=== PATIENT | male | born 1935 | race Caucasian/White ===

== ENCOUNTER 2016-10-29 14:20 | Outpatient (RCR) | payer MEDICARE, OTHER ==
--- OUTSIDE RECORDS SUMMARY | 2016-08-26 13:01 | XMS REPORT | Continuity of Care Document ---
Author Author [facility] Organization [facility] Address Unknown Phone Unavailable Care Team Providers Care Supervisor Sewer Maintenance Name Role Phone Lenora Avalos PCP [phone] Source Comments Some departments are not documenting in the electronic medical record. If you do not see the information that you expected, contact Release of Information in the Health Information Management department at [phone] for further assistance in locating additional records.[facility] Active Allergies and Adverse Reactions Allergen Noted Date Severity Reactions Comments Sulfa (Sulfonamide 05/03/2015 Medium RASH Antibiotics) Current Medications Prescription Sig. Disp. Refills Start End Date Status Date other medication Take 1 Dose by mouth. Active [place] vitamins daily pantoprazole DR Take 40 mg by mouth Active (PROTONIX) 40 mg tablet daily. ondansetron (ZOFRAN) 4 mg Take 4 mg by mouth every Active tablet 4 hours as needed for Nausea. metolazone (ZAROXOLYN) Take 2.5 mg by mouth Active 2.5 mg tablet twice weekly. potassium chloride SR Take 10 mEq by mouth Active (K-DUR) 10 mEq tablet twice weekly. oxyCODONE (ROXICODONE) 5 Take 1-2 Tabs by mouth 30 Tab 0 05/22/20 Active mg tablet every 4 hours as needed 15 for Pain tamsulosin (FLOMAX) 0.4 Take 1 Cap by mouth daily 30 Cap 3 05/22/20 Active mg capsule after breakfast. 15 metoprolol (LOPRESSOR) 50 Take 1 Tab by mouth twice 60 Tab 3 05/22/20 Active mg tablet daily. 15 polyethylene glycol 3350 Take 17 g by mouth twice 3 Bottle 3 05/22/20 Active (GLYCOLAX; MIRALAX) 17 daily. 15 gram/dose powder senna/docusate Take 2 Tabs by mouth 05/22/20 Active (SENOKOT-S) 8.6/50 mg twice daily. 15 tablet aspirin 81 mg chewable Take 1 Tab by mouth 90 Tab 3 05/22/20 Active tablet daily. 15 Active Problems Problem Noted Date Leukocytosis 05/22/2015 S/P laparotomy 05/22/2015 Overview: 05/14/15: Pancreaticoduodenectomy, open cholecystectomy, reconstruction with pancreaticojejunostomy, hepaticojejunostomy, and gastrojejunostomy. S/P cholecystectomy 05/22/2015 Overview: 05/14/15 Atrial flutter (HCC) 05/21/2015 Overview: 05/19/15: Pt noted to have irregular rhythm. Cardiology consulted. AFlutter. Heparin gtt. Cardizem gtt. Plan for LAURA 05/21 and cardioversion if no clots. However pt spontaneously converted at 1900. 05/20/15: Change Dilt to PO 180mg XL. DC Heparin gtt. Plan for TTE tomorrow. 05/21/15: Change Dilt to Lopressor 25mg BID. Pt back in AF on ECHO. Treatment Lovenox. EP consult--plan to do ablation in future ECHO 05/21/15: Rhythm was atrial flutter at time of image acquisition. Hyperdynamic LV function. LVEF ~70%. Mild left atrial enlargement. No significant valvular abnormalities. Technically difficult study. Postoperative ileus 05/17/2015 Essential hypertension 05/15/2015 Overview: WIRE SAWYER: Cozaar 100mg Pancreatic mass 05/14/2015 Social History Tobacco Use Types Packs/Day Years Used Date Never Smoker Smokeless Tobacco: Never Used Alcohol Use Drinks/Week oz/Week Comments No Last Filed Vital Signs Vital Sign Reading Time Taken Blood Pressure 135/70 06/28/2015 11:03 AM CDT Pulse 48 06/28/2015 11:03 AM CDT Temperature 36.4 C (97.6 F) 06/28/2015 11:03 AM CDT Respiratory Rate 17 05/03/2015 11:00 AM CDT Height 1.727 m (5' 8") 06/28/2015 11:03 AM CDT Weight 77.248 kg (170 lb 4.8 oz) 06/28/2015 11:03 AM CDT Body Mass Index 25.9 06/28/2015 11:03 AM CDT Oxygen Saturation 100% 06/28/2015 11:03 AM CDT Plan of Care Health Maintenance Due Date Last Done Comments Physical (Comprehensive) 1942 Exam Pertussis Vaccine 1948 Tetanus Vaccine 1954 Shingles Vaccine 1997 Prevnar/Pneumovax (#1) 2002 Influenza Vaccine 05/22/2016 Results from Last 3 Months Not on file
[~2016-10-29 14:20] MED LIST: ASPI-983 PO; CEFD300C3 PO; FURO40TA4 PO; LEVO500T80 PO; LIPA1CAP4 PO; LISI1TAB10 PO; LOSA100T7 PO; METO-333 PO; METO2.5T PO; METO50TA2 PO; METR500T PO; MTL5T PO; MULT-116 PO; ONDA4TAB10 PO; OXYC5TAB71 PO; PANT40TA3 PO; POLY17PO6 PO; POTA10CA43 PO; POTA20TA8 PO; SENN-1 PO; TAMS0.4C2 PO
== END 2016-11-24 | disposition home or self-care (01) ==
LOC: ONC 14:20
PROVIDERS: ATTEND Internal Medicine Hematology & Oncology
DX: C25.0 Malignant neoplasm of head of pancreas (principal); D64.9 Anemia, unspecified; I10 Essential (primary) hypertension; K21.9 Gastro-esophageal reflux disease without esophagitis; Z79.899 Other long term (current) drug therapy
CPT/HCPCS: 99213

== ENCOUNTER 2017-02-17 09:22 | Outpatient (RCR) | payer MEDICARE, OTHER ==
--- OUTSIDE RECORDS SUMMARY | 2016-12-02 14:20 | XMS REPORT | Continuity of Care Document ---
Author Author [facility] Organization [facility] Address Unknown Phone Unavailable Care Team Providers Care Makeup Editor Name Role Phone Lenora Avalos PCP [phone] Source Comments Some departments are not documenting in the electronic medical record. If you do not see the information that you expected, contact Release of Information in the Health Information Management department at [phone] for further assistance in locating additional records.[facility] Active Allergies and Adverse Reactions Allergen Noted [...] Postoperative ileus 05/17/2015 Essential hypertension 05/15/2015 Overview: MEDICAL SALES SPECIALIST: Cozaar 100mg Pancreatic mass 05/14/2015 Social History [...]
[~2017-02-17 09:22] MED LIST changes: -BARIUM SUSPENSION 2.1% (VANILLA SILQ) 450 ML PO ONE; -CATHETER FLUSH 10 ML SYR IV PRN; -IOHEXOL 350 MG/ML 100 ML (OMNIPAQUE 350) VIAL IV ONE; -NS 100 ML (IVPB) BAG IV ONE
[2017-02-17 09:42] LABS: BASOPHILS % (AUTO) 0 % (0-10); EOSINOPHILS # (AUTO) 0.2 10^3/uL (0.0-0.3); EOSINOPHILS % (AUTO) 3 % (0-10); LYMPHOCYTES # (AUTO) 1.4 X 10^3 (1.0-4.0); LYMPHOCYTES % (AUTO) 20 % (12-44); MEAN CORPUSCULAR HEMOGLOBIN 29 PG (25-34); MEAN CORPUSCULAR HGB CONC 33 G/DL (32-36); MEAN CORPUSCULAR VOLUME 88 FL (80-99); MEAN PLATELET VOLUME 9.4 FL (7.4-10.4); MONOCYTES # (AUTO) 1.2 X 10^3 (0.0-1.0); MONOCYTES % (AUTO) 17 % (0-12); NEUTROPHILS # (AUTO) 4.1 X 10^3 (1.8-7.8); NEUTROPHILS % (AUTO) 60 % (42-75); PLATELET COUNT 242 10^3/uL (130-400); RED BLOOD COUNT 4.18 10^6/uL (4.35-5.85); RED CELL DISTRIBUTION WIDTH 13.2 % (10.0-14.5); WHITE BLOOD COUNT 6.9 10^3/uL (4.3-11.0)
[2017-02-17 10:25] LABS: ALANINE AMINOTRANSFERASE 22 U/L (0-55); ANION GAP 7 MMOL/L (5-14); ASPARTATE AMINO TRANSFERASE 24 U/L (5-34); BILIRUBIN,TOTAL 0.3 MG/DL (0.1-1.0); BLOOD UREA NITROGEN 21 MG/DL (7-18); BUN/CREATININE RATIO 19; CALCIUM 9.3 MG/DL (8.5-10.1); CARBON DIOXIDE 26 MMOL/L (21-32); CHLORIDE 106 MMOL/L (98-107); CREATININE SERUM 1.09 MG/DL (0.60-1.30); GFR ESTIMATED > 60; GLUCOSE 86 MG/DL (70-105); POTASSIUM 4.5 MMOL/L (3.6-5.0); SODIUM 139 MMOL/L (135-145); TOTAL PROTEIN 6.8 G/DL (6.4-8.2)
== END 2017-03-02 | disposition home or self-care (01) ==
LOC: ONC 09:22
PROVIDERS: ATTEND Internal Medicine Hematology & Oncology
DX: C25.0 Malignant neoplasm of head of pancreas (principal); D64.9 Anemia, unspecified; I10 Essential (primary) hypertension; K21.9 Gastro-esophageal reflux disease without esophagitis; Z79.899 Other long term (current) drug therapy
CPT/HCPCS: 36415; 80053; 85025; 99212; 99213

== ENCOUNTER → 2017-02-17 | Outpatient (CLI) | payer MEDICARE, OTHER ==
[~2017-02-17] MED LIST changes: +BARIUM SUSPENSION 2.1% (VANILLA SILQ) 450 ML PO ONE; +CATHETER FLUSH 10 ML SYR IV PRN; +IOHEXOL 350 MG/ML 100 ML (OMNIPAQUE 350) VIAL IV ONE; +NS 100 ML (IVPB) BAG IV ONE
--- NOTE | 2017-02-17 13:29 | Diagnostic Imaging Report ---
PROCEDURE: CT chest with contrast, CT abdomen and pelvis with and without contrast. TECHNIQUE: Pre and post intravenous contrast axial imaging of the abdomen and pelvis and post contrast axial imaging of the chest were performed. INDICATION: Pancreatic cancer. 100 mL of Omnipaque 350 is administered intravenously. FINDINGS: CT CHEST: There is no mediastinal mass. No mediastinal, hilar or axillary lymphadenopathy seen. The heart size is normal. No pericardial or pleural effusion. The thoracic aorta is normal in caliber. No aneurysm or dissection. The lungs demonstrate no significant consolidation or mass. There is an indeterminate 4 mm low density nodule seen along the left major fissure at the level of the hilum, axial image 27. No prior studies are available for comparison. No other nodules are identified. Minimal dependent atelectasis seen in the lungs. The osseous structures demonstrate right convexity scoliosis. Degenerative changes are also seen in the mid thoracic spine. No destructive mass. CT ABDOMEN AND PELVIS: There is a 1.1 cm indeterminate lesion in the inferior aspect of the right hepatic lobe. Prior exams such as 11/05/2015 demonstrate a tiny subtle hypodense area in this location. This may suggest benign etiology. It also appears to have an elongated craniocaudal dimension, and morphology in favor of benign etiology. The spleen is not enlarged. The adrenals appear unremarkable. The pancreas demonstrates post surgical changes and adjacent surgical clips without significant change. The kidneys have symmetric enhancement and contrast excretion. There is no hydronephrosis. The urinary bladder appears unremarkable. There is moderate amounts of fecal material seen in the colon. The appendix is normal. No bowel obstruction. The abdominal aorta is normal in caliber. No para-aortic significantly enlarged lymph node is seen. The urinary bladder appears unremarkable. No pelvic lymphadenopathy is seen. Degenerative changes in the upper and lower lumbar spine are seen. There are moderate degenerative changes in the hip joints seen bilaterally. IMPRESSION: CT CHEST: Nonspecific 4 mm low density nodule along the left major fissure at the level of the hilum is favored to be related to scarring. Followup exams recommended. CT ABDOMEN: 1. A 1.1 cm hypodense lesion in the inferior aspect of the right hepatic lobe with an elongated craniocaudal dimension slightly more prominent compared to prior exams, likely benign. 2. Postsurgical changes near the pancreatic head with no developing soft tissue mass or lymphadenopathy. Dictated by: Dictated on workstation # [id number]
== END ==
LOC: RAD 09:53
PROVIDERS: ATTEND Internal Medicine Hematology & Oncology
DX: C25.0 Malignant neoplasm of head of pancreas (principal)
CPT/HCPCS: 71260; 74178

== ENCOUNTER 2017-04-17 08:48 | Outpatient (RCR) | payer MEDICARE, OTHER ==
[~2017-04-17 08:48] MED LIST changes: -MULT-116 PO; +MULT-324 PO
== END 2017-06-20 | disposition home or self-care (01) ==
LOC: ONC 08:48
PROVIDERS: ATTEND Internal Medicine Hematology & Oncology
DX: C25.0 Malignant neoplasm of head of pancreas (principal); D64.9 Anemia, unspecified; I10 Essential (primary) hypertension; K21.9 Gastro-esophageal reflux disease without esophagitis; Z79.899 Other long term (current) drug therapy
CPT/HCPCS: 99213

== ENCOUNTER → 2017-09-16 | Outpatient (CLI) | payer MEDICARE, OTHER ==
[~2017-09-16] MED LIST changes: +BARIUM SUSPENSION 2.1% (VANILLA SILQ) 450 ML PO ONE; +IOHEXOL 350 MG/ML 100 ML (OMNIPAQUE 350) VIAL IV ONE; +METO50TA15 PO; -METO50TA2 PO; +NS 100 ML (IVPB) BAG IV ONE; +OXYC-529 PO; -OXYC5TAB71 PO
--- NOTE | 2017-09-16 11:39 | Diagnostic Imaging Report ---
PROCEDURE: CT chest, abdomen, and pelvis with contrast. TECHNIQUE: Multiple contiguous axial images were obtained through the chest, abdomen, and pelvis after the administration of intravenous contrast. INDICATION: Primary pancreatic neuroendocrine tumor. 100 mL of Omnipaque 350 is administered intravenously. COMPARISON: 02/17/2017. FINDINGS: CT CHEST: Nonspecific 4 mm nodule along the major fissure on the left side at the level of the hilum is again seen without change from 02/17/2017 exam. There is no significant consolidation, mass, or suspicious or enlarging nodule identified. There is no mediastinal mass. There is no significant lymphadenopathy in the mediastinum or [place]. No significant lymphadenopathy in the axillae. A thyroid nodule measuring 1.5 cm in the left lobe is seen. This appears slightly more prominent compared to the prior study possibly related to different enhancement phase with no definitive change in size. No pleural or pericardial effusion. The thoracic aorta demonstrates normal enhancement with ectasia, particularly along the distal ascending aorta and in the arch. The cardiac size is borderline enlarged. The osseous structures appear grossly unremarkable. CT ABDOMEN AND PELVIS: There are hypodense lesions in the liver up to 1.2 cm anteriorly in segment IV and 1.1 cm in the inferior aspect of the right hepatic lobe. These are similar to prior exams and also are too small to accurately characterize, and are likely benign such as cysts. There is no new mass. The spleen is not enlarged. The adrenal glands appear unremarkable. Postsurgical changes and clips are seen near the pancreatic head area probably related to prior Whipple's procedure with the distal aspect of the pancreas demonstrating minimally prominent pancreatic duct and atrophy of the pancreatic tail. There is no evidence of tumor recurrence. The kidneys have symmetric enhancement and contrast excretion. There is no hydronephrosis. Small cyst projecting anteriorly from the lower pole of the right kidney is seen measuring 1.3 cm, similar to the prior exam. The abdominal aorta is normal in caliber. No para-aortic significantly enlarged lymph node is seen. There is no significant free fluid or fluid collection in the abdomen or pelvis. The osseous structures demonstrate degenerative changes with no suspicious destructive mass identified. IMPRESSION: CT CHEST: Stable 4 mm nodule in the major fissure on the left side at the level of the hilum probably related to a scar. No evidence of metastasis. CT ABDOMEN AND PELVIS: Stable hypodense lesions in the liver up to 1.2 cm in size, may relate to cysts. Post-Whipple changes are also seen. No evidence of tumor recurrence or metastasis. Dictated by: Dictated on workstation # [id number]
== END ==
LOC: RAD 10:20
PROVIDERS: ATTEND Internal Medicine Hematology & Oncology
DX: D3A.8 Other benign neuroendocrine tumors (principal); R91.1 Solitary pulmonary nodule; K76.89 Other specified diseases of liver; Z98.890 Other specified postprocedural states
CPT/HCPCS: 71260; 74177

== ENCOUNTER → 2017-09-30 | Outpatient (RCR) | payer MEDICARE, OTHER ==
[~2017-09-30] MED LIST changes: -BARIUM SUSPENSION 2.1% (VANILLA SILQ) 450 ML PO ONE; -IOHEXOL 350 MG/ML 100 ML (OMNIPAQUE 350) VIAL IV ONE; -NS 100 ML (IVPB) BAG IV ONE
== END | disposition home or self-care (01) ==
LOC: ONC 07-02 13:22
PROVIDERS: ATTEND Internal Medicine Hematology & Oncology
DX: C25.0 Malignant neoplasm of head of pancreas (principal); D64.9 Anemia, unspecified; I10 Essential (primary) hypertension; K21.9 Gastro-esophageal reflux disease without esophagitis; Z79.899 Other long term (current) drug therapy
CPT/HCPCS: 99213

== ENCOUNTER 2018-03-25 13:15 | Outpatient (RCR) | payer MEDICARE, OTHER ==
[~2018-03-25 13:15] MED LIST changes: -SENN-1 PO; +SENN-145 PO
== END 2018-04-20 | disposition home or self-care (01) ==
LOC: ONC 13:15
PROVIDERS: ATTEND Internal Medicine Hematology & Oncology
DX: C25.0 Malignant neoplasm of head of pancreas (principal); D64.9 Anemia, unspecified; I10 Essential (primary) hypertension; K21.9 Gastro-esophageal reflux disease without esophagitis; Z79.899 Other long term (current) drug therapy
CPT/HCPCS: 99213

== ENCOUNTER 2018-05-21 14:29 | Emergency (ER) | payer MEDICARE, OTHER ==
[~2018-05-21] VITALS: Ht 175.3 cm; Wt 83.9 kg
--- NOTE | 2018-05-21 14:58 | ED Lower Extremity ---
General Stated Complaint: LT FOOT INJ Source: patient Exam Limitations: no limitations History of Present Illness Date Seen by Provider: May 21, 2018 Time Seen by Provider: 14:57 Initial Comments To Er with c/o left great toe pain after dropping a trailer tongue on it earlier this afternoon. Onset: just prior to arrival Pain/Injury Location: left 1st toe Method of Injury: direct blow Modifying Factors: Worse With Movement Allergies and Home Medications Allergies Coded Allergies: Tetanus Vaccines & Toxoid (Unverified Allergy, Unknown, 03/25/15) Home Medications Furosemide 40 Mg Tablet, 20 MG PO DAILY Prescribed by: ROSMERY AVALOS on 05/29/15 1738 Levofloxacin 500 Mg Tablet, 500 MG PO HS 10 DAY THERAPY FILLED 05-23-15 Prescribed by: ROSMERY AVALOS on 11/09/15 0904 Lipase/Protease/Amylase 1 Each Capsule.dr, 2 EACH PO AC and 1 with snacks Prescribed by: ROSMERY AVALOS on 11/09/15 09 Metoprolol Tartrate 25 Mg Tablet, 25 MG PO BID Prescribed by: ROSMERY AVALOS on 05/29/15 173 Metronidazole 500 Mg Tablet, 500 MG PO TID Prescribed by: ROSMERY AVALOS on 11/09/15 0904 Multivitamin 1 Each Tablet, 1 TAB PO DAILY, (Reported) Oxycodone HCl 5 Mg Tablet, 5 MG PO Q4H PRN for PAIN, (Reported) Pantoprazole Sodium 40 Mg Tablet.dr, 40 MG PO DAILY, (Reported) Polyethylene Glycol 3350 17 Gm Powd.pack, 17 GM PO BID PRN for CONSTIPATION, ( Reported) Potassium Chloride 20 Meq Tab.er.prt, 20 MEQ PO BID WITH MEALS Prescribed by: ROSMERY AVALOS on 05/29/15 1738 Sennosides/Docusate Sodium 1 Each Tablet, 1 TAB PO BID PRN for CONSTIPATION, ( Reported) Tamsulosin HCl 0.4 Mg Cap.er.24h, 0.4 MG PO DAILY, (Reported) Patient Home Medication List Home Medication List Reviewed: Yes Review of Systems Constitutional: see HPI EENTM: see HPI Respiratory: no symptoms reported Cardiovascular: no symptoms reported Genitourinary: see HPI Musculoskeletal: see HPI Skin: no symptoms reported Psychiatric/Neurological: No Symptoms Reported Past Dyhgxro-Arcegx-Ydagtj Hx Patient Social History Recent Foreign Travel: No Contact w/Someone Who Travel: No Immunizations Up To Date Tetanus Booster (TDap): More than 5yrs Date of Pneumonia Vaccine: Jun 05, 2015 Date of Influenza Vaccine: Jul 05, 2015 Seasonal Allergies Seasonal Allergies: No Past Medical History Hypertension Reproductive Disorders: No Cataract Pancreatic Adverse Reaction/Blood Tranf: No Family Medical History Cardiovascular disease 19 FATHER Dementia 19 MOTHER Diabetes mellitus 19 FATHER FH: leukemia G8 SISTER FH: multiple myeloma G8 BROTHER Physical Exam Vital Signs Vital Signs - First Documented 05/21/18 14:55 Temp 97.2 Pulse 61 Resp 18 B/P (MAP) 150/83 (105) Pulse Ox 99 Capillary Refill : Height, Weight, BMI Height: 5'8.00" Weight: 172lbs. 0.0oz. 78.559046mc; 29.49 BMI Method:Actual General Appearance: WD/WN, no apparent distress HEENT: PERRL/EOMI, normal ENT inspection Respiratory: no respiratory distress, no accessory muscle use Hips: bilateral hip non-tender, bilateral hip normal inspection, bilateral hip normal range of motion Legs: bilateral leg non-tender, bilateral leg normal inspection, bilateral leg normal range of motion Knees: bilateral knee non-tender, bilateral knee normal inspection, bilateral knee normal range of motion Ankles: bilateral ankle non-tender, bilateral ankle normal inspection, bilateral ankle normal range of motion Feet: left foot ecchymosis, left foot pain, left foot soft tissue tenderness, left foot other (over 1st MTP joint) Neurologic/Tendon: normal sensation, normal motor functions, normal tendon functions Neurologic/Psychiatric: alert, normal mood/affect, oriented x 3 Skin: normal color, warm/dry Capillary refill over left great toe is brisk, normal sensation Progress/Results/Core Measures Results/Orders My Orders Orders - JORGE RUFF APRN Foot, Left, 3 Views (05/21/18 14:56) Ibuprofen Tablet (Motrin Tablet) (05/21/18 15:00) Medications Given in ED Current Medications Medications Dose Ordered Sig/Prasad Route Start Time Stop Time Status Last Admin Dose Admin Ibuprofen 800 mg ONCE ONCE PO 05/21/18 15:00 05/21/18 15:01 DC 05/21/18 15:10 800 MG Vital Signs/I&O 05/21/18 14:55 Temp 97.2 Pulse 61 Resp 18 B/P (MAP) 150/83 (105) Pulse Ox 99 Diagnostic Imaging Diagonstic Imaging: Xray Comments NAME: SHAY KATZ [facility] REC#: [id number] PT STATUS: REG ER : 1935 PHYSICIAN: JORGE RUFF APRN ADMIT DATE: 05/21/18/ER Draft Date of Exam:05/21/18 FOOT, LEFT, 3 VIEWS INDICATION: Injury to left foot. EXAMINATION: AP, oblique, and lateral views of the left foot are obtained. FINDINGS: There is an acute fracture of the first proximal phalanx, without significant malalignment. Remaining bony structures are unremarkable. IMPRESSION: Acute fracture of first proximal phalanx without significant malalignment. Dictated on workstation # [id number] Dict: 05/21/18 1513 Trans: 05/21/18 1546 [facility] [phone] Interpreted by: MONET DIAZ MD Electronically signed by: Departure Impression Primary Impression: Fracture of toe Disposition: 01 HOME, SELF-CARE Condition: Stable Departure-Patient Inst. Decision time for Depature: 15:49 Referrals: ROSMERY AVALOS DO (PCP/Family) Primary Care Physician Patient Instructions: Toe Fracture (DC) Add. Discharge Instructions: 1. Keep the first 2 toes jose taped together. Wear very protective and supportive shoes for the next 2-3 weeks. Follow-up with Dr. Avalos to repeat x- rays in a few weeks. JORGE RUFF APRN May 21, 2018 14:58
[2018-05-21] MEDS: IBUPROFEN 800 MG (MOTRIN) TAB PO ONE (15:10)
--- NOTE | 2018-05-21 15:46 | Diagnostic Imaging Report ---
INDICATION: Injury to left foot. EXAMINATION: AP, oblique, and lateral views of the left foot are obtained. FINDINGS: There is an acute fracture of the first proximal phalanx, without significant malalignment. Remaining bony structures are unremarkable. IMPRESSION: Acute fracture of first proximal phalanx without significant malalignment. Dictated by: Dictated on workstation # [id number]
[2018-05-21 15:55] VITALS: BP 150/83
--- OUTSIDE RECORDS SUMMARY | 2018-05-22 03:41 | XMS REPORT | Clinical Summary ---
Author Author [facility] Organization [facility] Address Unknown Phone Unavailable Care Team Providers Care Urban And Regional Planner Name Role Phone Lyndsay Fishman RN Unavailable Unavailable Emmanuel Vences DO Unavailable Lenora Avalos MD PCP Josey Marino RN Unavailable Unavailable Perry Willis MD Unavailable Source Comments Some departments are not documenting in the electronic medical record. If you do not see the information that you expected, contact Release of Information in the Health Information Management department at [phone] for further assistance in locating additional records.[facility] Allergies Active Allergy Reactions Severity Noted Date Comments Sulfa (Sulfonamide RASH Medium 05/03/2015 Antibiotics) Current Medications Prescription Sig. Disp. Refills [...] valvular abnormalities. Technically difficult study. Postoperative ileus (HCC) 05/17/2015 Essential hypertension 05/15/2015 Overview: HEALTH UNDERWRITER: Cozaar 100mg Pancreatic mass 05/14/2015 Social History Tobacco Use Types Packs/Day Years Used Date Never Smoker Smokeless Tobacco: Never Used Alcohol Use Drinks/Week oz/Week Comments No Sex Assigned at Date Recorded Not on file Last Filed Vital Signs Vital Sign Reading Time Taken Blood Pressure 135/70 06/28/2015 11:03 AM CDT Pulse 48 06/28/2015 11:03 AM CDT Temperature 36.4 C (97.6 F) 06/28/2015 11:03 AM CDT Respiratory Rate 17 05/03/2015 11:00 AM CDT Oxygen Saturation 100% 06/28/2015 11:03 AM CDT Inhaled Oxygen - - Concentration Weight 77.2 kg (170 lb 4.8 oz) 06/28/2015 11:03 AM CDT Height 172.7 cm (5' 8") 06/28/2015 11:03 AM CDT Body Mass Index 25.89 06/28/2015 11:03 AM CDT Plan of Treatment Health Maintenance Due Date Last Done Comments PHYSICAL (COMPREHENSIVE) 1942 EXAM PERTUSSIS VACCINE 1948 TETANUS VACCINE 1954 SHINGLES RECOMBINANT 1987 VACCINE (1 of 2) PNEUMONIA (PCV13/PPSV23) 2002 VACCINES (1 of 2 - PCV13) INFLUENZA VACCINE 06/21/2018 Results Not on filefrom Last 3 Months
--- OUTSIDE RECORDS SUMMARY | 2018-05-22 03:42 | XMS REPORT | Continuity of Care Document ---
Author Author [facility] Organization [facility] Address Unknown Phone Unavailable Allergies Active Description Code Type Severity Reaction Onset Reported/Identified Relationship to Patient Clinical Status Yes Tetanus Vaccines Toxoid [id number] Drug Allergy Unknown N/A 03/25/2015 Yes Tetanus Vaccines and Toxoid [id number] Drug Allergy Unknown N/A 2014 Medications There is no data. Problems Date Dx Coded Attending Type Code Diagnosis Diagnosed By 02/21/2011 Ot 883.1 02/21/2011 Ot 959.5 02/21/2011 Ot E000.8 02/21/2011 Ot E849.0 02/21/2011 Ot E920.1 03/25/2015 JORGE RUFF HABILITATION WORKER Ot 562.10 DIVERTICULOSIS COLON (W/O MENT OF HEMORR 03/25/2015 JORGE RUFF HABILITATION WORKER Ot 783.0 ANOREXIA 03/25/2015 JORGE RUFF HABILITATION WORKER Ot 789.09 ABDOMINAL PAIN, OTHER SPECIFIED SITE 03/25/2015 Ot 253.1 03/28/2015 Ot 253.1 04/13/2015 JUDAH AVALOS DOQUELINE S Ot 157.9 04/19/2015 Ot 253.1 04/19/2015 LOIDANDER DO, ROSMERY S Ot 577.9 04/19/2015 LOIDANDER DO, ROSMERY S Ot 789.01 04/19/2015 LOIDANDER DO, ROSMERY S Ot 157.9 04/25/2015 LOIDANDER DO, ROSMERY S Ot 577.9 04/25/2015 LOIDANDER DO, ROSMERY S Ot 789.01 05/03/2015 LOIDANDPAGE PICKETT ROSMERY S Ot 157.9 05/15/2015 DUNCAN MOTTA, SHANNAN Ross Ot 157.0 05/15/2015 DUNCAN MOTTA, SHANNAN Ross Ot 285.9 05/15/2015 DUNCAN MOTTA, SHANNAN Ross Ot 401.9 05/15/2015 DUNCAN MOTTA, SHANNAN Ross Ot 530.81 05/15/2015 DUNCAN MOTTA, SHANNAN Ross Ot V58.69 05/29/2015 LOIDANDER DO, ROSMERY S Ot 038.9 SEPTICEMIA NOS 05/29/2015 LOIDANDER DO, ROSMERY S Ot 157.9 MALIG ISAIAS PANCREAS NOS 05/29/2015 LOIDANDER DO, ROSMERY S Ot 276.8 HYPOPOTASSEMIA 05/29/2015 LOIDANDER DO, ROSMERY S Ot 285.9 ANEMIA NOS 05/29/2015 LOIDANDER DO, ROSMERY S Ot 401.9 HYPERTENSION NOS 05/29/2015 LOIDANDER DO, ROSMERY S Ot 486 PNEUMONIA, ORGANISM NOS 05/29/2015 LOIDANDER DO, ROSMERY S Ot 564.00 UNSPEC CONSTIPATION 05/29/2015 LOIDANDER DO, ROSMERY S Ot 780.79 OTH MALAISE FATIGUE 05/29/2015 LOIDANDER DO, ROSMERY S Ot 995.91 SEPSIS 05/29/2015 LOIDANDER DO, ROSMERY S Ot 997.39 OTHER RESPIRATORY COMPLICATIONS 05/29/2015 LOIDANDPAGE DO ROSMERY S Ot 998.59 OTH POSTOPER INFECTION 06/13/2015 LOIDANDPAGE DO, ROSMERY S Ot 288.60 06/13/2015 LOIDANDER DO, ROSMERY S Ot 780.60 06/18/2015 Ot 253.1 06/18/2015 LOIDANDPAGE DO, ROSMERY S Ot 577.9 06/18/2015 LOIDANDER DO, ROSMERY S Ot 789.01 06/18/2015 LOIDANDPAGE DO ROSMERY S Ot 157.9 06/18/2015 DUNCAN MOTTA, SHANNAN Ross Ot 157.0 06/18/2015 DUNCAN MOTTA, SHANNAN Ross Ot 285.9 06/18/2015 DUNCAN MOTTA, SHANNAN Ross Ot 401.9 06/18/2015 DUNCAN MOTTA, SHANNAN Ross Ot 530.81 06/18/2015 DUNCAN MOTTA, SHANNAN Ross Ot V58.69 06/18/2015 LOIDANDER DO, ROSMERY S Ot 288.60 06/18/2015 LOIDANDER DO, ROSMERY S Ot 780.60 06/18/2015 LOIDANDPAGE DO, ROSMERY S Ot 486 06/18/2015 ANABELLE MOTTA [facility], PAOLO GOLDEN CCDS Ot 157.9 06/18/2015 ANABELLE MOTTA FACC, ALI FACP CCDS Ot 285.9 06/18/2015 ANABELLE MOTTA FACC, ALI FACP CCDS Ot 427.31 06/18/2015 ANABELLE MOTTA FACC, ALI FACP CCDS Ot 458.9 06/20/2015 DUNCAN MOTTA, SHANNAN Ross Ot 157.0 MAL ISAIAS PANCREAS HEAD 06/20/2015 SHANNAN SONG MD Ot 285.9 ANEMIA NOS 06/20/2015 SHANNAN SONG MD Ot 401.9 HYPERTENSION NOS 06/20/2015 SHANNAN SONG MD Ot 530.81 ESOPHAGEAL REFLUX 06/20/2015 SHANNAN SONG MD Ot V58.69 [facility],CURRENT USE 06/27/2015 ROSMERY AVALOS DO Ot 486 2015 ANABELLE MOTTA FACC, ALI FACP CCDS Ot 157.9 2015 ANABELLE MOTTA FACC, ALI FACP CCDS Ot 285.9 2015 ANABELLE MOTTA FACC, ALI FACP CCDS Ot 427.31 2015 ANABELLE MOTTA FACC, ALI FACP CCDS Ot 458.9 07/12/2015 ANABELLE MOTTA FACC, ALI FACP CCDS Ot 157.9 07/12/2015 ANABELLE MOTTA FACC, ALI FACP CCDS Ot 285.9 07/12/2015 ANABELLE MOTTA FACC, ALI FACP CCDS Ot 427.31 07/12/2015 ANABELLE MOTTA FACC, ALI FACP CCDS Ot 458.9 09/12/2015 DUNCAN MOTTA, SHANNAN Ross Ot 157.0 09/12/2015 DUNCAN MOTTA, SHANNAN Ross Ot 285.9 09/12/2015 DUNCAN MOTTA, SHANNAN Ross Ot 401.9 09/12/2015 DUNCAN MOTTA, SHANNAN Ross Ot 530.81 09/12/2015 SHANNAN SONG MD Ot V58.69 09/19/2015 DUNCAN MOTTA, SHANNAN Ross Ot 157.0 09/19/2015 DUNCAN MOTTA, SHANNAN Ross Ot 285.9 09/19/2015 DUNCAN MOTTA, SHANNAN Ross Ot 401.9 09/19/2015 DUNCAN MOTTA, SHANNAN Ross Ot 530.81 09/19/2015 SHANNAN SONG MD Ot V58.69 11/05/2015 Ot 253.1 11/05/2015 ROSMERY AVALOS DO S Ot 577.9 11/05/2015 ROSMERY AVALOS DO S Ot 789.01 11/05/2015 ORENDER DO, ROSMERY S Ot 157.9 11/05/2015 ORENDER DO, ROSMERY S Ot 288.60 11/05/2015 ORENDER DO, ROSMERY S Ot 780.60 11/05/2015 ORENDER DO, ROSMERY S Ot 486 11/05/2015 ANABELLE MOTTA FACC, ALI FACP CCDS Ot 157.9 11/05/2015 ANABELLE MOTTA FAC, ALI FACP CCDS Ot 285.9 11/05/2015 ANABELLE MD FAC, ALI FACP CCDS Ot 427.31 11/05/2015 ANABELLE MOTTA FAC, ALI FACP CCDS Ot 458.9 11/05/2015 ANABELLE MOTTA FAC, ALI FACP CCDS Ot 157.9 11/05/2015 ANABELLE MOTTA FAC, ALI FACP CCDS Ot 285.9 11/05/2015 ANABELLE MOTTA FAC, ALI FACP CCDS Ot 427.31 11/05/2015 ANABELLE MOTTA FAC, ALI FACP CCDS Ot 458.9 11/05/2015 DUNCAN MOTTA, SHANNAN Cody Ot C25.0 11/05/2015 DUNCAN MOTTA, SHANNAN K Ot D64.9 11/05/2015 DUNCAN MOTTA, SHANNAN K Ot I10 11/05/2015 DUNCAN MOTTA, SHANNAN K Ot K21.9 11/05/2015 DUNCAN MOTTA, SHANNAN Ross Ot Z79.899 11/07/2015 ORENDER DO, ROSMERY S Ot I10 11/07/2015 ORENDER DO, ROSMERY S Ot N28.1 11/07/2015 ORENDER DO, ROSMERY S Ot R58 11/07/2015 ORENDER DO, ROSMERY S Ot Z85.07 11/08/2015 ORENDER DO, ROSMERY S Ot I10 11/08/2015 ORENDER DO, ROSMERY S Ot N28.1 11/08/2015 ORENDER DO, ROSMERY S Ot R58 11/08/2015 ORENDER DO, ROSMERY S Ot Z85.07 11/08/2015 ORENDER DO, ROSMERY S Ot I10 11/08/2015 ORENDER DO, ROSMERY S Ot N28.1 11/08/2015 ORENDER DO, ROSMERY S Ot R58 11/08/2015 [facility] ROMSERY S Ot Z85.07 11/09/2015 [facility], ROSMERY S Ot I10 11/09/2015 ORENDER DO, ROSMERY S Ot N28.1 11/09/2015 ORENDER DO, ROSMERY S Ot R58 11/09/2015 ORENDER DO, ROSMERY S Ot Z85.07 11/09/2015 OREND DO, ROSMERY S Ot D62 ACUTE POSTHEMORRHAGIC ANEMIA 11/09/2015 ORENDER DO, ROSMERY S Ot I10 ESSENTIAL (PRIMARY) HYPERTENSION 11/09/2015 ORENDER DO, ROSMERY S Ot I48.91 UNSPECIFIED ATRIAL FIBRILLATION 11/09/2015 [facility], ROSMERY S Ot N28.1 CYST OF KIDNEY, ACQUIRED 11/09/2015 OREND DO, ROSMERY S Ot R58 HEMORRHAGE, NOT ELSEWHERE CLASSIFIED 11/09/2015 [facility] , ROSMERY S Ot Z85.07 PERSONAL HISTORY OF MALIGNANT NEOPLASM O 12/03/2015 JAYA VAUGHAN Ot R10.12 12/17/2015 SHANNAN SONG MD Ot C25.0 MALIGNANT NEOPLASM OF HEAD OF PANCREAS 12/17/2015 SHANNAN SONG MD Ot D64.9 ANEMIA, UNSPECIFIED 12/17/2015 SHANNAN SONG MD Ot I10 ESSENTIAL (PRIMARY) HYPERTENSION 12/17/2015 SHANNAN SONG MD Ot K21.9 GASTRO-ESOPHAGEAL REFLUX DISEASE WITHOUT 12/17/2015 SHANNAN SONG MD Ot Z79.899 OTHER CORRECTION (CURRENT) DRUG THERAPY 01/16/2016 SHANNAN SONG MD Ot C25.0 MALIGNANT NEOPLASM OF HEAD OF PANCREAS 01/16/2016 SHANNAN SONG MD Ot D64.9 ANEMIA, UNSPECIFIED 01/16/2016 SHANNAN SONG MD Ot I10 ESSENTIAL (PRIMARY) HYPERTENSION 01/16/2016 SHANNAN SONG MD Ot K21.9 GASTRO-ESOPHAGEAL REFLUX DISEASE WITHOUT 01/16/2016 SHANNAN SONG MD Ot Z79.899 OTHER COVER ASSEMBLER (CURRENT) DRUG THERAPY 02/06/2016 SHANNAN SONG MD Ot D3A.8 OTHER BENIGN NEUROENDOCRINE TUMORS 02/11/2016 SHANNAN SONG MD Ot C25.0 MALIGNANT NEOPLASM OF HEAD OF PANCREAS 02/11/2016 SHANNAN SONG MD Ot D64.9 ANEMIA, UNSPECIFIED 02/11/2016 SHANNAN SONG MD Ot I10 ESSENTIAL (PRIMARY) HYPERTENSION 02/11/2016 SHANNAN SONG MD Ot K21.9 GASTRO-ESOPHAGEAL REFLUX DISEASE WITHOUT 02/11/2016 SHANNAN SONG MD Ot Z79.899 OTHER COVER ASSEMBLER (CURRENT) DRUG THERAPY 04/10/2016 SHANNAN SONG MD Ot C25.0 MALIGNANT NEOPLASM OF HEAD OF PANCREAS 04/10/2016 SHANNAN SONG MD Ot D64.9 ANEMIA, UNSPECIFIED 04/10/2016 SHANNAN SONG MD Ot I10 ESSENTIAL (PRIMARY) HYPERTENSION 04/10/2016 SHANNAN SONG MD Ot K21.9 GASTRO-ESOPHAGEAL REFLUX DISEASE WITHOUT 04/10/2016 SHANNAN SONG MD Ot Z79.899 OTHER COVER ASSEMBLER (CURRENT) DRUG THERAPY 04/11/2016 SHANNAN SONG MD, Ot C25.0 MALIGNANT NEOPLASM OF HEAD OF PANCREAS 04/11/2016 SHANNAN SONG MD, Ot D64.9 ANEMIA, UNSPECIFIED 04/11/2016 SHANNAN SONG MD Ot I10 ESSENTIAL (PRIMARY) HYPERTENSION 04/11/2016 SHANNAN SONG MD, Ot K21.9 GASTRO-ESOPHAGEAL REFLUX DISEASE WITHOUT 04/11/2016 SHANNAN SONG MD Ot Z79.899 OTHER COVER ASSEMBLER (CURRENT) DRUG THERAPY 05/20/2016 SHANNAN SONG MD, Ot C25.0 MALIGNANT NEOPLASM OF HEAD OF PANCREAS 05/20/2016 SHANNAN SONG MD, Ot D64.9 ANEMIA, UNSPECIFIED 05/20/2016 SHANNAN SONG MD Ot I10 ESSENTIAL (PRIMARY) HYPERTENSION 05/20/2016 SHANNAN SONG MD Ot K21.9 GASTRO-ESOPHAGEAL REFLUX DISEASE WITHOUT 05/20/2016 SHANNAN SONG MD Ot Z79.899 OTHER COVER ASSEMBLER (CURRENT) DRUG THERAPY 07/14/2016 SHANNAN SONG MD Ot C25.0 MALIGNANT NEOPLASM OF HEAD OF PANCREAS 07/14/2016 SHANNAN SONG MD, Ot D64.9 ANEMIA, UNSPECIFIED 07/14/2016 SHANNAN SONG MD Ot I10 ESSENTIAL (PRIMARY) HYPERTENSION 07/14/2016 SHANNAN SONG MD Ot K21.9 GASTRO-ESOPHAGEAL REFLUX DISEASE WITHOUT 07/14/2016 SHANNAN SONG MD Ot Z79.899 OTHER COVER ASSEMBLER (CURRENT) DRUG THERAPY 08/17/2016 DUNCAN MD, SHANNAN K Ot C25.0 MALIGNANT NEOPLASM OF HEAD OF PANCREAS 08/17/2016 SHANNAN SONG MD Ot D64.9 ANEMIA, UNSPECIFIED 08/17/2016 SHANNAN SONG MD Ot I10 ESSENTIAL (PRIMARY) HYPERTENSION 08/17/2016 SHANNAN SONG MD Ot K21.9 GASTRO-ESOPHAGEAL REFLUX DISEASE WITHOUT 08/17/2016 SHANNAN SONG MD Ot Z79.899 OTHER CORRECTION (CURRENT) DRUG THERAPY 08/20/2016 Ot 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 08/20/2016 ORENDER DO, ROSMERY S Ot 577.9 PANCREATIC DISEASE NOS 08/20/2016 ORENDER DO, ROSMERY S Ot 789.01 ABDOMINAL PAIN, RIGHT UPPER QUADRANT 08/20/2016 ORENDER DO, ROSMERY S Ot 157.9 MALIG ISAIAS PANCREAS NOS 08/20/2016 ORENDER DO, ROSMERY S Ot 288.60 LEUKOCYTOSIS, UNSPECIFIED 08/20/2016 ORENDER DO, ROSMERY S Ot 780.60 FEVER, UNSPECIFIED 08/20/2016 ORENDER DO, ROSMERY S Ot 486 PNEUMONIA, ORGANISM NOS 08/20/2016 ANABELLE MOTTA FACC, ALI FACP CCDS Ot 157.9 MALIG ISAIAS PANCREAS NOS 08/20/2016 ANABELLE MOTTA FACC, ALI FACP CCDS Ot 285.9 ANEMIA NOS 08/20/2016 ANABELLE MOTTA FACC, ALI FACP CCDS Ot 427.31 ATRIAL FIBRILLATION 08/20/2016 ANABELLE MOTTA FACC, ALI FACP CCDS Ot 458.9 HYPOTENSION NOS 08/20/2016 ANABELLE MOTTA FACC, ALI FACP CCDS Ot 157.9 MALIG ISAIAS PANCREAS NOS 08/20/2016 ANABELLE MOTTA FACC, ALI FACP CCDS Ot 285.9 ANEMIA NOS 08/20/2016 ANABELLE MOTTA FACC, ALI FACP CCDS Ot 427.31 ATRIAL FIBRILLATION 08/20/2016 ANABELLE MOTTA FACC, ALI FACP CCDS Ot 458.9 HYPOTENSION NOS 08/20/2016 SHANNAN SONG MD Ot D3A.8 OTHER BENIGN NEUROENDOCRINE TUMORS 08/20/2016 JAYA VAUGHAN DIRECTOR OF RETAIL ANALYTICS Ot R10.12 LEFT UPPER QUADRANT PAIN 08/20/2016 SHANNAN SONG MD Ot C25.0 MALIGNANT NEOPLASM OF HEAD OF PANCREAS 08/20/2016 SHANNAN SONG MD Ot D64.9 ANEMIA, UNSPECIFIED 08/20/2016 SHANNAN SONG MD Ot I10 ESSENTIAL (PRIMARY) HYPERTENSION 08/20/2016 SHANNAN SONG MD Ot K21.9 GASTRO-ESOPHAGEAL REFLUX DISEASE WITHOUT 08/20/2016 SHANNAN SONG MD Ot Z79.899 OTHER COVER ASSEMBLER (CURRENT) DRUG THERAPY 08/21/2016 SHANNAN SONG MD Ot C25.0 MALIGNANT NEOPLASM OF HEAD OF PANCREAS 08/27/2016 SHANNAN SONG MD Ot C25.0 MALIGNANT NEOPLASM OF HEAD OF PANCREAS 08/27/2016 SHANNAN SONG MD Ot D64.9 ANEMIA, UNSPECIFIED 08/27/2016 SHANNAN SONG MD Ot I10 ESSENTIAL (PRIMARY) HYPERTENSION 08/27/2016 SHANNAN SONG MD Ot K21.9 GASTRO-ESOPHAGEAL REFLUX DISEASE WITHOUT 08/27/2016 SHANNAN SONG MD Ot Z79.899 OTHER CORRECTION (CURRENT) DRUG THERAPY 09/10/2016 SHANNAN SONG MD Ot C25.0 MALIGNANT NEOPLASM OF HEAD OF PANCREAS 10/22/2016 SHANNAN SONG MD Ot C25.0 MALIGNANT NEOPLASM OF HEAD OF PANCREAS 10/22/2016 SHANNAN SONG MD Ot D64.9 ANEMIA, UNSPECIFIED 10/22/2016 SHANNAN SONG MD Ot I10 ESSENTIAL (PRIMARY) HYPERTENSION 10/22/2016 SHANNAN SONG MD Ot K21.9 GASTRO-ESOPHAGEAL REFLUX DISEASE WITHOUT 10/22/2016 SHANNAN SONG MD Ot Z79.899 OTHER COVER ASSEMBLER (CURRENT) DRUG THERAPY 11/24/2016 SHANNAN SONG MD Ot C25.0 MALIGNANT NEOPLASM OF HEAD OF PANCREAS 11/24/2016 SHANNAN SONG MD Ot D64.9 ANEMIA, UNSPECIFIED 11/24/2016 SHANNAN SONG MD Ot I10 ESSENTIAL (PRIMARY) HYPERTENSION 11/24/2016 SHANNAN SONG MD Ot K21.9 GASTRO-ESOPHAGEAL REFLUX DISEASE WITHOUT 11/24/2016 SHANNAN SONG MD Ot Z79.899 OTHER CORRECTION (CURRENT) DRUG THERAPY 12/01/2016 SHANNAN SONG MD Ot C25.0 MALIGNANT NEOPLASM OF HEAD OF PANCREAS 12/01/2016 SHANNAN SONG MD Ot D64.9 ANEMIA, UNSPECIFIED 12/01/2016 SHANNAN SONG MD Ot I10 ESSENTIAL (PRIMARY) HYPERTENSION 12/01/2016 SHANNAN SONG MD Ot K21.9 GASTRO-ESOPHAGEAL REFLUX DISEASE WITHOUT 12/01/2016 SHANNAN SONG MD Ot Z79.899 OTHER CORRECTION (CURRENT) DRUG THERAPY 12/01/2016 SHANNAN SONG MD Ot C25.0 MALIGNANT NEOPLASM OF HEAD OF PANCREAS 12/01/2016 SHANNAN SONG MD Ot D64.9 ANEMIA, UNSPECIFIED 12/01/2016 SHANNAN SONG MD Ot I10 ESSENTIAL (PRIMARY) HYPERTENSION 12/01/2016 SHANNAN SONG MD Ot K21.9 GASTRO-ESOPHAGEAL REFLUX DISEASE WITHOUT 12/01/2016 SHANNAN SONG MD Ot Z79.899 OTHER COVER ASSEMBLER (CURRENT) DRUG THERAPY 12/03/2016 SHANNAN SONG MD Ot C25.0 MALIGNANT NEOPLASM OF HEAD OF PANCREAS 12/03/2016 SHANNAN SONG MD Ot D64.9 ANEMIA, UNSPECIFIED 12/03/2016 SHANNAN SONG MD Ot I10 ESSENTIAL (PRIMARY) HYPERTENSION 12/03/2016 SHANNAN SONG MD, Ot K21.9 GASTRO-ESOPHAGEAL REFLUX DISEASE WITHOUT 12/03/2016 SHANNAN SONG MD Ot Z79.899 OTHER COVER ASSEMBLER (CURRENT) DRUG THERAPY 01/13/2017 SHANNAN SONG MD Ot C25.0 MALIGNANT NEOPLASM OF HEAD OF PANCREAS 01/13/2017 SHANNAN SONG MD Ot D64.9 ANEMIA, UNSPECIFIED 01/13/2017 SHANNAN SONG MD Ot I10 ESSENTIAL (PRIMARY) HYPERTENSION 01/13/2017 SHANNAN SONG MD, Ot K21.9 GASTRO-ESOPHAGEAL REFLUX DISEASE WITHOUT 01/13/2017 SHANNAN SONG MD Ot Z79.899 OTHER COVER ASSEMBLER (CURRENT) DRUG THERAPY 02/18/2017 SHANNAN SONG MD Ot C25.0 MALIGNANT NEOPLASM OF HEAD OF PANCREAS 02/20/2017 SHANNAN SONG MD Ot C25.0 MALIGNANT NEOPLASM OF HEAD OF PANCREAS 02/20/2017 SHANNAN SONG MD Ot C25.0 MALIGNANT NEOPLASM OF HEAD OF PANCREAS 02/23/2017 SHANNAN SONG MD Ot C25.0 MALIGNANT NEOPLASM OF HEAD OF PANCREAS 03/02/2017 SHANNAN SONG MD Ot C25.0 MALIGNANT NEOPLASM OF HEAD OF PANCREAS 03/02/2017 SHANNAN SONG MD Ot D64.9 ANEMIA, UNSPECIFIED 03/02/2017 SHANNAN SONG MD Ot I10 ESSENTIAL (PRIMARY) HYPERTENSION 03/02/2017 SHANNAN SONG MD Ot K21.9 GASTRO-ESOPHAGEAL REFLUX DISEASE WITHOUT 03/02/2017 SHANNAN SONG MD Ot Z79.899 OTHER CORRECTION (CURRENT) DRUG THERAPY 03/03/2017 SHANNAN SONG MD Ot C25.0 MALIGNANT NEOPLASM OF HEAD OF PANCREAS 03/03/2017 SHANNAN SONG MD Ot D64.9 ANEMIA, UNSPECIFIED 03/03/2017 SHANNAN SONG MD Ot I10 ESSENTIAL (PRIMARY) HYPERTENSION 03/03/2017 SHANNAN SONG MD Ot K21.9 GASTRO-ESOPHAGEAL REFLUX DISEASE WITHOUT 03/03/2017 SHANNAN SONG MD Ot Z79.899 OTHER CORRECTION (CURRENT) DRUG THERAPY 03/20/2017 SHANNAN SONG MD Ot C25.0 MALIGNANT NEOPLASM OF HEAD OF PANCREAS 04/20/2017 SHANNAN SONG MD Ot C25.0 MALIGNANT NEOPLASM OF HEAD OF PANCREAS 04/20/2017 SHANNAN SONG MD Ot D64.9 ANEMIA, UNSPECIFIED 04/20/2017 SHANNAN SONG MD Ot I10 ESSENTIAL (PRIMARY) HYPERTENSION 04/20/2017 SHANNAN SONG MD, Ot K21.9 GASTRO-ESOPHAGEAL REFLUX DISEASE WITHOUT 04/20/2017 SHANNAN SONG MD Ot Z79.899 OTHER CORRECTION (CURRENT) DRUG THERAPY 05/18/2017 SHANNAN SONG MD Ot C25.0 MALIGNANT NEOPLASM OF HEAD OF PANCREAS 05/18/2017 SHANNAN SONG MD, Ot D64.9 ANEMIA, UNSPECIFIED 05/18/2017 SHANNAN SONG MD Ot I10 ESSENTIAL (PRIMARY) HYPERTENSION 05/18/2017 SHANNAN SONG MD, Ot K21.9 GASTRO-ESOPHAGEAL REFLUX DISEASE WITHOUT 05/18/2017 SHANNAN SONG MD Ot Z79.899 OTHER CORRECTION (CURRENT) DRUG THERAPY 06/20/2017 SHANNAN SONG MD Ot C25.0 MALIGNANT NEOPLASM OF HEAD OF PANCREAS 06/20/2017 SHANNAN SONG MD Ot D64.9 ANEMIA, UNSPECIFIED 06/20/2017 SHANNAN SONG MD Ot I10 ESSENTIAL (PRIMARY) HYPERTENSION 06/20/2017 SHANNAN SONG MD Ot K21.9 GASTRO-ESOPHAGEAL REFLUX DISEASE WITHOUT 06/20/2017 SHANNAN SONG MD Ot Z79.899 OTHER COVER ASSEMBLER (CURRENT) DRUG THERAPY 08/14/2017 JOSE MASON MD Ot C25.0 MALIGNANT NEOPLASM OF HEAD OF PANCREAS 08/14/2017 JOSE MASON MD, Ot D64.9 ANEMIA, UNSPECIFIED 08/14/2017 JOSE MASON MD Ot I10 ESSENTIAL (PRIMARY) HYPERTENSION 08/14/2017 JOSE MASON MD, Ot K21.9 GASTRO-ESOPHAGEAL REFLUX DISEASE WITHOUT 08/14/2017 JOSE MASON MD Ot Z79.899 OTHER COVER ASSEMBLER (CURRENT) DRUG THERAPY 09/30/2017 JOSE MASON MD Ot C25.0 MALIGNANT NEOPLASM OF HEAD OF PANCREAS 09/30/2017 JOSE MASON MD Ot D64.9 ANEMIA, UNSPECIFIED 09/30/2017 JOSE MASON MD Ot I10 ESSENTIAL (PRIMARY) HYPERTENSION 09/30/2017 JOSE MASON MD Ot K21.9 GASTRO-ESOPHAGEAL REFLUX DISEASE WITHOUT 09/30/2017 JOSE MASON MD, Ot Z79.899 OTHER COVER ASSEMBLER (CURRENT) DRUG THERAPY 10/01/2017 JOSE MASON MD Ot C25.0 MALIGNANT NEOPLASM OF HEAD OF PANCREAS 10/01/2017 JOSE MASON MD Ot D64.9 ANEMIA, UNSPECIFIED 10/01/2017 JOSE MASON MD Ot I10 ESSENTIAL (PRIMARY) HYPERTENSION 10/01/2017 JOSE MASON MD, Ot K21.9 GASTRO-ESOPHAGEAL REFLUX DISEASE WITHOUT 10/01/2017 JOSE MASON MD, Ot Z79.899 OTHER CORRECTION (CURRENT) DRUG THERAPY 10/08/2017 JOSE MASON MD Ot D3A.8 OTHER BENIGN NEUROENDOCRINE TUMORS 10/08/2017 JOSE MASON MD Ot K76.89 OTHER SPECIFIED DISEASES OF LIVER 10/08/2017 JOSE MASON MD Ot R91.1 SOLITARY PULMONARY NODULE 10/08/2017 JOSE MASON MD Ot Z98.890 OTHER SPECIFIED POSTPROCEDURAL STATES 03/25/2018 ORENDER DO, ROSMERY S Ot 577.9 PANCREATIC DISEASE NOS 03/25/2018 ORENDER DO, ROSMERY S Ot 789.01 ABDOMINAL PAIN, RIGHT UPPER QUADRANT 03/25/2018 LOIDANDER DO, ROSMERY S Ot 157.9 MALIG ISAIAS PANCREAS NOS 03/25/2018 ORENDER DO, ROSMERY S Ot 288.60 LEUKOCYTOSIS, UNSPECIFIED 03/25/2018 ORENDER DO, ROSMERY S Ot 780.60 FEVER, UNSPECIFIED 03/25/2018 ROSMERY AVALOS DO Ot 486 PNEUMONIA, ORGANISM NOS 03/25/2018 ANABELLE MOTTA FACC, ALI FACP CCDS Ot 157.9 MALIG ISAIAS PANCREAS NOS 03/25/2018 ANABELLE MD FACC, ALI FACP CCDS Ot 285.9 ANEMIA NOS 03/25/2018 ANABELLE FACC, ALI FACP CCDS Ot 427.31 ATRIAL FIBRILLATION 03/25/2018 ANABELLE MD FACC, ALI FACP CCDS Ot 458.9 HYPOTENSION NOS 03/25/2018 ANABELLE FACC, ALI FACP CCDS Ot 157.9 MALIG ISAIAS PANCREAS NOS 03/25/2018 ANABELLE FACC, ALI FACP CCDS Ot 285.9 ANEMIA NOS 03/25/2018 ANABELLE MD FACC, ALI FACP CCDS Ot 427.31 ATRIAL FIBRILLATION 03/25/2018 ANABELLE MD FACC, ALI FACP CCDS Ot 458.9 HYPOTENSION NOS 03/25/2018 SHANNAN SONG MD Ot D3A.8 OTHER BENIGN NEUROENDOCRINE TUMORS 03/25/2018 JAYA VAUGHAN Ot R10.12 LEFT UPPER QUADRANT PAIN 03/25/2018 SHANNAN SONG MD Ot C25.0 MALIGNANT NEOPLASM OF HEAD OF PANCREAS 03/25/2018 SHANNAN SONG MD, Ot C25.0 MALIGNANT NEOPLASM OF HEAD OF PANCREAS 03/25/2018 JOSE MASON MD, Ot D3A.8 OTHER BENIGN NEUROENDOCRINE TUMORS 03/25/2018 JOSE MASON MD, Ot K76.89 OTHER SPECIFIED DISEASES OF LIVER 03/25/2018 JOSE MASON MD, Ot R91.1 SOLITARY PULMONARY NODULE 03/25/2018 JOSE MASON MD, Ot Z98.890 OTHER SPECIFIED POSTPROCEDURAL STATES 03/25/2018 JOSE MASON MD, Ot C25.0 MALIGNANT NEOPLASM OF HEAD OF PANCREAS 03/25/2018 JOSE MASON MD, Ot D64.9 ANEMIA, UNSPECIFIED 03/25/2018 JOSE MASON MD, Ot I10 ESSENTIAL (PRIMARY) HYPERTENSION 03/25/2018 JOSE MASON MD, Ot K21.9 GASTRO-ESOPHAGEAL REFLUX DISEASE WITHOUT 03/25/2018 JOSE MASON MD, Ot Z79.899 OTHER CORRECTION (CURRENT) DRUG THERAPY 03/26/2018 JOSE MASON MD, Ot C25.0 MALIGNANT NEOPLASM OF HEAD OF PANCREAS 03/26/2018 JOSE MASON MD Ot D64.9 ANEMIA, UNSPECIFIED 03/26/2018 JOSE MASON MD Ot I10 ESSENTIAL (PRIMARY) HYPERTENSION 03/26/2018 JOSE MASON MD Ot K21.9 GASTRO-ESOPHAGEAL REFLUX DISEASE WITHOUT 03/26/2018 JOSE MASON MD, Ot Z79.899 OTHER CORRECTION (CURRENT) DRUG THERAPY 05/11/2018 JOSE MASON MD, Ot C25.0 MALIGNANT NEOPLASM OF HEAD OF PANCREAS 05/11/2018 JOSE MASON MD, Ot D64.9 ANEMIA, UNSPECIFIED 05/11/2018 JOSE MASON MD Ot I10 ESSENTIAL (PRIMARY) HYPERTENSION 05/11/2018 JOSE MASON MD, Ot K21.9 GASTRO-ESOPHAGEAL REFLUX DISEASE WITHOUT 05/11/2018 JOSE MASON MD, Ot 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 Results There is no data. Encounters ACCT No. Visit Date/Time Discharge Status Pt. Type Provider Facility Loc./Unit Complaint [id number] 09/25/2014 11:04:03 09/25/2014 23:59:59 CLS Outpatient Isadora Escoto [id number] 07/25/2014 14:07:17 07/25/2014 23:59:59 CLS Outpatient Isadora Escoto [id number] 05/23/2014 15:13:01 05/23/2014 23:59:59 CLS Outpatient Isadora Escoto 07/04/17 03/22/2018 13:40:14 03/22/2018 23:59:59 CLS Outpatient Rosmery Avaols [id number] 03/25/2018 13:15:00 03/25/2018 23:59:59 CLS Outpatient JOSE MASON MD [facility] ONC [id number] 09/30/2017 14:20:00 09/30/2017 00:01:00 DIS Outpatient JOSE MASON MD [facility] ONC [id number] 09/16/2017 10:20:00 09/16/2017 23:59:59 CLS Outpatient JOSE MASON MD [facility] RAD PRIMARY PANCREATIC NEUROENDOCRINE TUMOR [id number] 04/17/2017 08:48:00 06/20/2017 00:01:00 DIS Outpatient SHANNAN SONG MD [facility] ONC [id number] 02/17/2017 09:53:00 02/17/2017 23:59:59 CLS Outpatient SHANNAN SONG MD [facility] RAD C25.0 PANCREATIC CA [id number] 02/17/2017 09:22:00 02/17/2017 23:59:59 CLS Outpatient SHANNAN SONG MD [facility] ONC [id number] 10/29/2016 14:20:00 11/24/2016 00:01:00 DIS Outpatient SHANNAN SONG MD [facility] ONC [id number] 08/20/2016 10:22:00 08/20/2016 23:59:59 CLS Outpatient SHANNAN SONG MD [facility] RAD PANCREATIC CA [id number] 05/27/2016 13:03:00 08/17/2016 00:01:00 DIS Outpatient SHANNAN SONG MD [facility] ONC [id number] 01/21/2016 12:47:00 04/10/2016 00:01:00 DIS Outpatient SHANNAN SONG MD [facility] ONC [id number] 01/14/2016 10:49:00 01/14/2016 23:59:59 CLS Outpatient SHANNAN SONG MD [facility] RAD PRIMARY PANCREATIC TUMOR [id number] 12/06/2015 10:45:00 12/17/2015 00:01:00 DIS Outpatient SHANNAN SONG MD [facility] ONC [id number] 11/06/2015 08:37:00 11/09/2015 10:19:00 DIS Inpatient ROSMERY AVALOS DO [facility] 4TH ABD PAIN LUQ LESION ON KIDNEY L RENAL MASS [id number] 11/05/2015 13:50:00 11/05/2015 23:59:59 CLS Outpatient JAYA VAUGHAN [facility] RAD LUQ ABD PAIN [id number] 06/18/2015 12:58:00 06/20/2015 00:01:00 DIS Outpatient SHANNAN SONG MD [facility] ONC [id number] 06/18/2015 10:32:00 06/18/2015 23:59:59 CLS Outpatient ANABELLE MOTTA FACC, PAOLO DELAROSA CCDS [facility] CARD ARTERIAL HYPOTENSION, CA PANCREATIC CANCER,PAF, AN [id number] 06/11/2015 15:20:00 06/11/2015 23:59:59 CLS Outpatient ANABELLE MOTTA FACC, APOLO DELAROSA CCDS [facility] ARTERIAL HYPERTENSION, PANCREATIC CANCER, PAF [id number] 06/07/2015 10:20:00 06/07/2015 23:59:59 CLS Outpatient JUDAH AVALOS DOQUELINE S [facility] RECHECKING VALUES, RECENT SURGERY, F/U PNEUMONIA [id number] 05/25/2015 13:13:00 05/29/2015 19:31:00 DIS Inpatient LOIDANDPAGE PICKETT ROSMERY S [facility] SURGICAL POST OP PNEUMONIA [id number] 05/24/2015 11:45:00 05/24/2015 23:59:59 CLS Outpatient OLENA PICKETT ROSMERY S [facility] FEVER, INCREASING WHITE CELL COUNT [id number] 04/10/2015 11:48:00 04/10/2015 23:59:59 CLS Outpatient LOIDANDPAGE PICKETT ROSMERY S [facility] RAD PANCREATIC MASS [id number] 03/27/2015 06:59:00 03/27/2015 23:59:59 CLS Outpatient LOIDANDPAGE PICKETT ROSMERY S [facility] RAD RUQ PAIN, PANCREATIC MASS [id number] 03/25/2015 19:19:00 03/25/2015 22:21:00 DIS Emergency JORGE RUFF APRN [facility] ER SICKNESS/NOT EATING [id number] 03/19/2012 12:49:00 Document Registration [id number] 02/21/2011 15:48:00 Document Registration
== END 2018-05-21 16:05 | disposition home or self-care (01) ==
LOC: EDUNIT# 14:29 → ER 14:30
DX: S92.412A Displaced fracture of proximal phalanx of left great toe, initial encounter for closed fracture (principal); M79.675 Pain in left toe(s); I10 Essential (primary) hypertension; Z82.49 Family history of ischemic heart disease and other diseases of the circulatory system; Z80.6 Family history of leukemia; Z88.7 Allergy status to serum and vaccine; W20.8XXA Other cause of strike by thrown, projected or falling object, initial encounter
CPT/HCPCS: 73630

== ENCOUNTER 2018-10-07 13:02 | Outpatient (RCR) | payer MEDICARE, OTHER ==
[~2018-10-07 13:02] MED LIST changes: -MULT-324 PO; +MULT-834 PO
== END 2019-01-05 | disposition home or self-care (01) ==
LOC: ONC 13:02
PROVIDERS: ATTEND Internal Medicine Hematology & Oncology
DX: C25.0 Malignant neoplasm of head of pancreas (principal); D64.9 Anemia, unspecified; I10 Essential (primary) hypertension; K21.9 Gastro-esophageal reflux disease without esophagitis; Z79.899 Other long term (current) drug therapy
CPT/HCPCS: 99213

== ENCOUNTER → 2019-01-13 | Outpatient (CLI) | payer MEDICARE, OTHER ==
--- NOTE | 2019-01-13 09:21 | Diagnostic Imaging Report ---
Indication: Back pain AP and lateral views of the thoracolumbar spine shows normal alignment. There is mild scoliotic curvature of the upper thoracic spine convex to the right and a second convex to the right at the thoracolumbar junction. There are no appreciable compression fractures. There are degenerative changes of the disc at L1-2. There is mild disc space narrowing elsewhere. IMPRESSION: No acute abnormality seen in the thoracic or lumbar spine. Dictated by: Dictated on workstation # [id number]
--- NOTE | 2019-01-13 09:23 | Diagnostic Imaging Report ---
INDICATION: Low back pain Lumbar spine AP and lateral views of lumbar spine show normal vertebral body height and alignment. There is mild scoliosis of the lower lumbar spine convex to the left. There is minimal degenerative disc changes at T12-L1 and L1-L2. There is disc space narrowing at L5-S1. IMPRESSION: Minimal degenerative change T12, L1-L2 as well as disc space narrowing at L5-S1. No acute abnormalities seen. Dictated by: Dictated on workstation # [id number]
== END ==
LOC: RAD 08:50
PROVIDERS: ATTEND Family Medicine
DX: M51.37 Other intervertebral disc degeneration, lumbosacral region (principal)
CPT/HCPCS: 72072; 72100

== ENCOUNTER → 2019-02-07 | Outpatient (CLI) | payer MEDICARE, OTHER ==
[~2019-02-07] MED LIST changes: +BARIUM SUSPENSION 2.1% (VANILLA SILQ) 450 ML PO ONE; +HOLD METFORMIN - RECEIVED CONTRAST 20 ML VIAL IV SCH; +IOHEXOL 350 MG/ML 100 ML (OMNIPAQUE 350) VIAL IV ONE; +NS 250 ML (IVPB) BAG IV ONE
--- NOTE | 2019-02-07 14:20 | Diagnostic Imaging Report ---
PROCEDURE: CT chest with contrast, CT abdomen and pelvis with and without contrast. TECHNIQUE: Pre and post intravenous contrast axial imaging of the abdomen and pelvis and post contrast axial imaging of the chest were performed. Auto Exposure Controls were utilized during the CT exam to meet ALARA standards for radiation dose reduction. INDICATION: Pancreatic carcinoma with Whipple procedure. COMPARISON: Correlation is made with prior CT from 09/16/2017. CT CHEST: FINDINGS: Left lobe thyroid nodule measures 7 mm compared with 15 mm on prior exam. No axillary lymphadenopathy is detected. No mediastinal or hilar lymphadenopathy is detected. There are coronary arterial calcifications. There is no pericardial or pleural fluid identified. Tiny nodule noted along the major fissure on the left is stable. No new pulmonary mass is detected. There are no infiltrates. IMPRESSION: Stable CT chest when compared with exam from 09/16/2017. No thoracic lymphadenopathy or evidence of pulmonary metastatic disease is identified. CT ABDOMEN AND PELVIS: FINDINGS: Low-density lesions in the liver are stable in size when compared with prior exam. No new lesion is seen. There is no biliary duct dilatation. Postsurgical changes of Whipple procedure again noted. There is atrophy of the pancreatic body and tail. No discrete mass at the surgical site is identified. The spleen is unremarkable. No adrenal mass is detected. Kidneys are unremarkable. Aorta is non-aneurysmal. No central retroperitoneal or mesenteric lymphadenopathy is seen. Small and large bowel loops are normal in caliber. There is diverticulosis of the sigmoid but no evidence of acute diverticulitis. The bladder is unremarkable. Prostate is unremarkable. No pelvic lymphadenopathy is seen. 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 IMPRESSION: 1. Stable CT of the abdomen and pelvis when compared with the exam from 09/16/2017. There are postop changes of Whipple procedure. No residual recurrent mass or evidence of lymphadenopathy is detected. 2. Uncomplicated diverticulosis. Dictated by: Dictated on workstation # [id number]
== END ==
LOC: RAD 13:07
PROVIDERS: ATTEND Internal Medicine Hematology & Oncology
DX: C25.9 Malignant neoplasm of pancreas, unspecified (principal); K57.30 Diverticulosis of large intestine without perforation or abscess without bleeding; Z90.49 Acquired absence of other specified parts of digestive tract
CPT/HCPCS: 71260; 74178

== ENCOUNTER 2019-02-10 13:00 | Outpatient (RCR) | payer MEDICARE, OTHER ==
[~2019-02-10 13:00] MED LIST changes: -BARIUM SUSPENSION 2.1% (VANILLA SILQ) 450 ML PO ONE; -HOLD METFORMIN - RECEIVED CONTRAST 20 ML VIAL IV SCH; -IOHEXOL 350 MG/ML 100 ML (OMNIPAQUE 350) VIAL IV ONE; -NS 250 ML (IVPB) BAG IV ONE
== END 2019-05-11 | disposition home or self-care (01) ==
LOC: ONC 13:00
PROVIDERS: ATTEND Internal Medicine Hematology & Oncology
DX: C25.0 Malignant neoplasm of head of pancreas (principal); D64.9 Anemia, unspecified; I10 Essential (primary) hypertension; K21.9 Gastro-esophageal reflux disease without esophagitis; Z79.899 Other long term (current) drug therapy
CPT/HCPCS: 99213

== ENCOUNTER → 2019-02-21 | Outpatient (CLI) | payer MEDICARE, OTHER ==
--- NOTE | 2019-02-21 10:06 | Diagnostic Imaging Report ---
INDICATION: Swelling and pain to the right second digit. TIME OF EXAMINATION: 9:54 AM. TECHNIQUE: Three views of the right foot were obtained. FINDINGS: There are degenerative changes involving multiple interphalangeal joints. There may be some mild soft tissue swelling of the second toe; however, no definite osseous erosive changes are seen. No fractures are identified. The MTP joints are unremarkable. The midfoot and hindfoot are unremarkable. IMPRESSION: Degenerative changes with mild soft tissue swelling of the second toe. No acute fracture or evidence of osseous erosive change is seen. Dictated by: Dictated on workstation # [id number]
== END ==
LOC: RAD 08:53
PROVIDERS: ATTEND Nurse Practitioner Family
DX: M19.071 Primary osteoarthritis, right ankle and foot (principal)
CPT/HCPCS: 36415; 73630; 86060; 86141

== ENCOUNTER → 2019-04-07 | Outpatient (CLI) | payer MEDICARE ==
[2019-04-07 15:28] LABS: HEMOGLOBIN 12.3 G/DL (13.3-17.7); MEAN PLATELET VOLUME 9.1 FL (7.4-10.4); RED CELL DISTRIBUTION WIDTH 14.4 % (10.0-14.5); WHITE BLOOD COUNT 6.2 10^3/uL (4.3-11.0)
[2019-04-07 15:50] LABS: ALANINE AMINOTRANSFERASE 57 U/L (0-55); ALBUMIN 4.1 GM/DL (3.2-4.5); ALKALINE PHOSPHATASE 135 U/L (40-136); AMYLASE 52 U/L (25-125); BILIRUBIN,TOTAL 0.3 MG/DL (0.1-1.0); BUN/CREATININE RATIO 17; CALCIUM 9.5 MG/DL (8.5-10.1); CARBON DIOXIDE 25 MMOL/L (21-32); CHLORIDE 105 MMOL/L (98-107); GFR ESTIMATED > 60; GLUCOSE 128 MG/DL (70-105); LIPASE 20 U/L (8-78); POTASSIUM 4.1 MMOL/L (3.6-5.0); SODIUM 139 MMOL/L (135-145)
--- NOTE | 2019-04-07 16:05 | Diagnostic Imaging Report ---
EXAMINATION: Abdomen 2 view. HISTORY: Right-sided abdominal pain. COMPARISON: No comparison available. FINDINGS: Surgical clips are seen in the mid abdomen. Linear opacity, likely represents a stent in the common duct, versus overlying material. On the upright radiograph, no free air is seen. Sigmoid colon is gas-filled. No dilated loops of large or small bowel. IMPRESSION: 1. No dilated loops of large or small bowel and no free air. Dictated by: Dictated on workstation # [id number]
== END ==
LOC: LAB 15:03
PROVIDERS: ATTEND Nurse Practitioner Family
DX: R10.9 Unspecified abdominal pain (principal)
CPT/HCPCS: 36415; 74019; 80053; 82150; 83690; 85027

== ENCOUNTER → 2019-04-12 | Outpatient (CLI) | payer MEDICARE, OTHER ==
--- NOTE | 2019-04-12 10:29 | Diagnostic Imaging Report ---
PROCEDURE: US Hepatic (Liver). TECHNIQUE: Multiple real-time grayscale images were obtained over the right upper quadrant in various projections. INDICATION: Elevated liver enzymes. On the previous gallbladder ultrasound exam 03/27/2015, there are a few small simple cysts within the liver adjacent to the gallbladder fossa. Those cysts are not well visualized on this study. The left lobe of the liver is partially obscured by bowel gas. The liver itself is not enlarged and there is no focal mass involving the liver. The bili tree does not appear to be abnormally dilated. Spectral color flow imaging of the portal vein shows that the vein is patent and there is normal directional flow within the vein. In the interval since the prior exam, the patient has undergone a cholecystectomy. The common bile duct was not well-visualized. By history the patient has had a Whipple procedure. The pancreas was poorly imaged as well. There is a small benign-appearing 2.0 x 1.6 cm cyst along the interpole of the right kidney. This finding was not present on the prior exam. IMPRESSION: 1. The liver, where visualized, is unremarkable for a mass or for acute abnormality. 2. There has been interval cholecystectomy. The common bile duct was not well-visualized. 3. There is now small benign-appearing cyst along the inferior pole of the right kidney. Dictated by: Dictated on workstation # [id number]
== END ==
LOC: RAD 06:46
PROVIDERS: ATTEND Family Medicine
DX: N28.1 Cyst of kidney, acquired (principal); R94.5 Abnormal results of liver function studies; Z90.49 Acquired absence of other specified parts of digestive tract
CPT/HCPCS: 76705

== ENCOUNTER → 2019-08-04 | Outpatient (CLI) | payer MEDICARE, OTHER | LOC: EDSTATUS 05-12 12:54 → ONC 12:56 | PROVIDERS: ATTEND Internal Medicine Hematology & Oncology | DX: C25.4 Malignant neoplasm of endocrine pancreas (principal); M19.90 Unspecified osteoarthritis, unspecified site; I10 Essential (primary) hypertension; K91.2 Postsurgical malabsorption, not elsewhere classified; Z87.19 Personal history of other diseases of the digestive system; Z86.79 Personal history of other diseases of the circulatory system; Z90.49 Acquired absence of other specified parts of digestive tract | CPT/HCPCS: 99213 ==

== ENCOUNTER 2019-09-01 13:29 | Outpatient (RCR) | payer MEDICARE, OTHER ==
[~2019-09-01 13:29] MED LIST changes: +ONDA-105 PO; -ONDA4TAB10 PO
== END 2019-11-30 | disposition home or self-care (01) ==
LOC: ONC 13:29
PROVIDERS: ATTEND Internal Medicine Hematology & Oncology
DX: C25.4 Malignant neoplasm of endocrine pancreas (principal); M19.90 Unspecified osteoarthritis, unspecified site; I10 Essential (primary) hypertension; K91.2 Postsurgical malabsorption, not elsewhere classified; Z87.19 Personal history of other diseases of the digestive system; Z86.79 Personal history of other diseases of the circulatory system; Z90.49 Acquired absence of other specified parts of digestive tract
CPT/HCPCS: 99213

== ENCOUNTER 2020-03-01 13:11 | Outpatient (RCR) | payer MEDICARE, OTHER ==
[~2020-03-01 13:11] MED LIST changes: +ASPI-1238 PO; -ASPI-983 PO; -OXYC-529 PO; +OXYC5TAB96 PO
== END 2020-05-30 | disposition home or self-care (01) ==
LOC: ONC 13:11
PROVIDERS: ATTEND Internal Medicine Hematology & Oncology
DX: C25.0 Malignant neoplasm of head of pancreas (principal); M19.90 Unspecified osteoarthritis, unspecified site; I10 Essential (primary) hypertension; K91.2 Postsurgical malabsorption, not elsewhere classified; D3A.8 Other benign neuroendocrine tumors; N28.1 Cyst of kidney, acquired; D64.89 Other specified anemias; Z87.19 Personal history of other diseases of the digestive system; Z86.79 Personal history of other diseases of the circulatory system; Z90.49 Acquired absence of other specified parts of digestive tract; Z98.890 Other specified postprocedural states; Z90.89 Acquired absence of other organs; Z93.1 Gastrostomy status; Z79.899 Other long term (current) drug therapy
CPT/HCPCS: 99213

== ENCOUNTER 2021-04-22 13:52 | Observation (INO) | payer MEDICARE ==
[~2021-04-22] VITALS: Ht 172.2 cm; Wt 81.1 kg
[~2021-04-22 13:52] MED LIST changes: +OXC5T PO; -OXYC5TAB96 PO; -PANT40TA3 PO; +PANT40TA52 PO
--- NOTE | 2021-04-22 14:27 | ED General ---
General Chief Complaint: Glucose Problems Stated Complaint: BLOOD SUGAR @ 700 Nursing Triage Note: PT AMBULATE TO TRIAGE WITH C/O HYPERGLYCEMIA. PT WAS CALLED BY PCP AND TOLD TO COME TO ED BECAUSE LABS DRAWN INDICATED BG OF 700. Source of Information: Patient Exam Limitations: No Limitations History of Present Illness Date Seen by Provider: Apr 22, 2021 Time Seen by Provider: 14:26 Initial Comments To ER with reports of hyperglycemia. He had labs drawn around noon at the cancer center and was told his blood sugar was about 700. History of pancreatic tumor status post Whipple procedure at the [facility] in 2012. He has had poor appetite and 15 pound weight loss, these were his symptoms at the time of diagnosis of his pancreatic tumor. Timing/Duration: 1-2 Days Severity: Moderate Associated Systoms: Denies Symptoms Allergies and Home Medications Allergies Coded Allergies: Tetanus Vaccines and Toxoid (Unverified Allergy, Unknown, 03/25/15) Home Medications Furosemide 40 Mg Tablet, 20 MG PO DAILY Prescribed by: ROSMERY AVALOS on 05/29/15 173 Levofloxacin 500 Mg Tablet, 500 MG PO HS 10 DAY THERAPY FILLED 05-23-15 Prescribed by: ROSMERY AVALOS on 11/09/15 0904 Lipase/Protease/Amylase 1 Each Capsule.dr, 2 EACH PO AC and 1 with snacks Prescribed by: ROSMERY AVALOS on 11/09/15 0904 Metoprolol Tartrate 25 Mg Tablet, 25 MG PO BID Prescribed by: ROSMERY AVALOS on 05/29/15 1738 Metronidazole 500 Mg Tablet, 500 MG PO TID Prescribed by: ROSMERY AVALOS on 11/09/15 0904 Multivitamin 1 Each Tablet, 1 TAB PO DAILY, (Reported) Oxycodone Hcl 5 Mg Tablet, 5 MG PO Q4H PRN for PAIN, (Reported) Pantoprazole Sodium 40 Mg Tablet.dr, 40 MG PO DAILY, (Reported) Polyethylene Glycol 3350 17 Gm Powd.pack, 17 GM PO BID PRN for CONSTIPATION, (Reported) Potassium Chloride 20 Meq Tab.er.prt, 20 MEQ PO BID WITH MEALS Prescribed by: ROSMERY AVALOS on 05/29/15 1738 Sennosides/Docusate Sodium 1 Each Tablet, 1 TAB PO BID PRN for CONSTIPATION, (Reported) Tamsulosin HCl 0.4 Mg Cap.er.24h, 0.4 MG PO DAILY, (Reported) Patient Home Medication List Home Medication List Reviewed: Yes Review of Systems Review of Systems Constitutional: see HPI EENTM: see HPI Respiratory: no symptoms reported Cardiovascular: no symptoms reported Genitourinary: no symptoms reported Musculoskeletal: no symptoms reported Skin: no symptoms reported Psychiatric/Neurological: No Symptoms Reported Hematologic/Lymphatic: No Symptoms Reported Immunological/Allergic: no symptoms reported Past Cjgfiky-Krgkbi-Fkjnyn Hx Patient Social History Tobacco Use?: No Smoking Status: Never a Smoker Substance use?: No Alcohol Use?: No Pt feels they are or have been: No Immunizations Up To Date Tetanus Booster (TDap): More than 5yrs First/Initial COVID19 Vaccinat: 10/10/2020 Second COVID19 Vaccination Carlos: 11/10/2020 COVID19 Vaccine [employer]: [place] Seasonal Allergies Seasonal Allergies: No Past Medical History Surgeries: Yes (CARPAL TUNNEL BILAT; CATARACTS REPAIR) Respiratory: No Cardiac: Yes Hypertension Neurological: No Reproductive Disorders: No Gastrointestinal: Yes (LESION ON PANCREAS) Musculoskeletal: No Endocrine: No Cataract Cancer: Yes Pancreatic Psychosocial: No Integumentary: No Blood Disorders: No Adverse Reaction/Blood Tranf: No Family Medical History Cardiovascular disease 19 FATHER Dementia 19 MOTHER Diabetes mellitus 19 FATHER FH: leukemia G8 SISTER FH: multiple myeloma G8 BROTHER Physical Exam Vital Signs Vital Signs - First Documented 04/22/21 14:07 Temp 36.8 Pulse 67 Resp 17 B/P (MAP) 195/96 (129) O2 Delivery Room Air Capillary Refill : Less Than 3 Seconds Height, Weight, BMI Height: 5'9.00" Weight: 185lbs. 0.0oz. 83.914833rl; 27.00 BMI Method:Stated General Appearance: No Apparent Distress, WD/WN Eyes: Bilateral Eye Normal Inspection, Bilateral Eye PERRL, Bilateral Eye EOMI HEENT: PERRL/EOMI, TMs Normal Neck: Full Range of Motion, Normal Inspection Respiratory: Normal Breath Sounds, No Accessory Muscle Use, No Respiratory Distress Cardiovascular: Regular Rate, Rhythm, Normal Peripheral Pulses Gastrointestinal: Normal Bowel Sounds, Non Tender, Soft Extremity: Normal Capillary Refill, Normal Inspection Neurologic/Psychiatric: Alert, Oriented x3 Skin: Normal Color, Warm/Dry Progress/Results/Core Measures Suspected Sepsis SIRS Temperature: Pulse: 67 Respiratory Rate: 17 Blood Pressure 195 /96 Mean: 129 Results/Orders Lab Results Laboratory Tests Test 04/22/21 14:45 04/22/21 15:53 Range/Units Urine Color YELLOW Urine Clarity CLEAR Urine pH 6.0 5-9 Urine Specific [place] <=1.005 1.016-1.022 Urine Protein NEGATIVE NEGATIVE Urine Glucose (UA) 3+ H NEGATIVE Urine Ketones NEGATIVE NEGATIVE Urine Nitrite NEGATIVE NEGATIVE Urine Bilirubin NEGATIVE NEGATIVE Urine Urobilinogen 0.2 < = 1.0 MG/DL Urine Leukocyte Esterase NEGATIVE NEGATIVE Urine RBC (Auto) NEGATIVE NEGATIVE Urine RBC NONE /HPF Urine WBC NONE /HPF Urine Squamous Epithelial Cells NONE /HPF Urine Crystals NONE /LPF Urine Bacteria NEGATIVE /HPF Urine Casts NONE /LPF Urine Mucus NEGATIVE /LPF Urine Culture Indicated NO Glucometer 475 *H 70-110 MG/DL My Orders Orders - JORGE RUFF STREETCAR DISPATCHER Beta Hydroxybutyrate (04/22/21 14:15) Ed Iv/Invasive Line Start (04/22/21 14:15) Ed Iv/Invasive Line Start (04/22/21 14:17) Lactated Ringers (Lr 1000 Ml Iv Solution (04/22/21 14:30) Insulin (Regular) Human (Novolin R (Per (04/22/21 14:30) Ct Abdomen/Pelvis Wo (04/22/21 14:23) Ua Culture If Indicated (04/22/21 14:35) Accucheck Stat ONCE (04/22/21 15:41) Insulin Regular Drip (Myxredlin 100 Unit (04/22/21 16:00) Medications Given in ED Current Medications Medications Dose Ordered Sig/Prasad Route Start Time Stop Time Status Last Admin Dose Admin Insulin Human Regular 8 unit ONCE ONCE IV 04/22/21 14:30 04/22/21 14:31 DC 04/22/21 14:42 8 UNIT Vital Signs/I&O 04/22/21 14:07 Temp 36.8 Pulse 67 Resp 17 B/P (MAP) 195/96 (129) O2 Delivery Room Air Capillary Refill : Less Than 3 Seconds Blood Pressure Mean: 129 Departure Communication (Admissions) Family Conversation [id number] spoke with Dr. Avalos, will admit on insulin drip get his sugars the rest of the way down then start him on some daily management. I spoke with who states she does not necessarily need to consult, if we can get his sugars down she will be happy to follow-up outpatient with him. Discussed the CT findings (or lack thereof) with her. NAME: SHAY KATZ [facility] REC#: [id number] PT STATUS: REG ER : 1937 PHYSICIAN: JORGE RUFF APRN ADMIT DATE: 04/22/21/ER Draft Date of Exam:04/22/21 CT ABDOMEN/PELVIS WO PROCEDURE: CT abdomen and pelvis without contrast. TECHNIQUE: Multiple contiguous axial images were obtained through the abdomen and pelvis without the use of intravenous contrast. Auto Exposure Controls were utilized during the CT exam to meet ALARA standards for radiation dose reduction. INDICATION: Poor appetite and weight loss. Correlation is made with prior CT from 02/07/2019. The lung bases are clear. Liver does show some generalized low density consistent with hepatic steatosis. Previously noted low-density lesions in the liver are not appreciated on today's study. Patient has undergone a Whipple procedure. Pancreas appears stable. No mass is identified. Spleen is unremarkable. No adrenal mass is detected. Hyperdense lesion in the lower pole of the right kidney is stable. There appear to be some renal vascular calcifications. Aorta is calcified but nonaneurysmal. Bowel loops are normal caliber. There is no obstruction. No free fluid or fluid collection is seen. The bladder and prostate are unremarkable. No definite abdominal or pelvic lymphadenopathy is detected. IMPRESSION: Post-Whipple procedure. Previously noted small low-density lesions in the liver are not appreciated on today's study. No abdominal or pelvic lymphadenopathy or mass is detected. Dictated on workstation # [id number] Dict: 04/22/21 1539 Trans: 04/22/21 1554 [facility] [id number] Interpreted by: KRISTAL MACIAS MD Electronically signed by: Impression Primary Impression: Diabetes mellitus, new onset Disposition: ADMITTED INPATIENT Condition: Stable Admissions Decision to Admit Reason: Admit from ER (General) Decision to Admit/Date: Apr 22, 2021 Time/Decision to Admit Time: 15:57 Departure-Patient Inst. Referrals: ROSMERY AVALOS DO (PCP/Family) Primary Care Physician JORGE RUFF APRN Apr 22, 2021 14:27
[2021-04-22] MEDS ORDERED: inSUlin (REGULAR) HUMAN 1 UNIT/0.01 ML (CHARGE PER UNIT) IV ONE ×2 (14:30→20:30)
[2021-04-22] MEDS ORDERED: LACTATED RINGERS 1,000 ML IV SCH (14:30)
[2021-04-22 14:59] LABS: BILIRUBIN,URINE NEGATIVE (NEGATIVE); CLARITY,URINE CLEAR; COLOR,URINE YELLOW; GLUCOSE, URINE (UA) 3+ (NEGATIVE); KETONES,URINE NEGATIVE (NEGATIVE); LEUKOCYTE ESTERASE ,URINE NEGATIVE (NEGATIVE); NITRITE,URINE NEGATIVE (NEGATIVE); PROTEIN,URINE NEGATIVE (NEGATIVE)
[2021-04-22 15:11] LABS: BACTERIA,URINE NEGATIVE /HPF
--- NOTE | 2021-04-22 15:54 | Diagnostic Imaging Report ---
PROCEDURE: CT abdomen and pelvis without contrast. TECHNIQUE: Multiple contiguous axial images were obtained through the abdomen and pelvis without the use of intravenous contrast. Auto Exposure Controls were utilized during the CT exam to meet ALARA standards for radiation dose reduction. INDICATION: Poor appetite and weight loss. Correlation is made with prior CT from 02/07/2019. The lung bases are clear. Liver does show some generalized low density consistent with hepatic steatosis. Previously noted low-density lesions in the liver are not appreciated on today's study. Patient has undergone a Whipple procedure. Pancreas appears stable. No mass is identified. Spleen is unremarkable. No adrenal mass is detected. Hyperdense lesion in the lower pole of the right kidney is stable. There appear to be some renal vascular calcifications. Aorta is calcified but nonaneurysmal. Bowel loops are normal caliber. There is no obstruction. No free fluid or fluid collection is seen. The bladder and prostate are unremarkable. No definite abdominal or pelvic lymphadenopathy is detected. IMPRESSION: Post-Whipple procedure. Previously noted small low-density lesions in the liver are not appreciated on today's study. No abdominal or pelvic lymphadenopathy or mass is detected. Dictated by: Dictated on workstation # [id number]
[2021-04-22] MEDS ORDERED: 1/2 NS W/KCL 20 MEQ/L 1,000 ML IV SCH (17:45)
[2021-04-22] MEDS ORDERED: TAMSULOSIN 0.4 MG (FLOMAX) CAP PO ONE (19:15)
[2021-04-22] MEDS ORDERED: ACETAMINOPHEN 325 MG TABLET PO PRN (19:15)
--- NOTE | 2021-04-22 19:29 | History & Physical ---
History of Present Illness History of Present Illness Reason for visit/HPI This is an 85 year old male with a history of pancreatic cancer with whipple procedure in 2015. He has been having poor appetite, fatigue and weight loss over the last 3-[address] Kulkarni's office concerned that he may have a recurrence of his pancreatic cancer. Lab was done and showed an elevated blood sugar in the 700s. He was sent to the emergency room and was given IVFs as well as insulin and his blood sugar came down to 400s. He will be started on an insulin drip with IVFS and admitted and monitored in the ICU. Date of Admission Apr 22, 2021 at 16:30 Date Seen by a Provider: Apr 22, 2021 Time Seen by a Provider: 19:23 I consulted on this patient on 04/22/21 19:23 Attending Physician Rosmery Avalos DO Admitting Physician Rosmery Avalos DO Consult Allergies and Home Medications Allergies Coded Allergies: Tetanus Vaccines and Toxoid (Unverified Allergy, Unknown, 03/25/15) Home Medications Furosemide 40 Mg Tablet, 20 MG PO DAILY Prescribed by: ROSMERY AVALOS on 05/29/15 1738 Levofloxacin 500 Mg Tablet, 500 MG PO HS 10 DAY THERAPY FILLED 05-23-15 Prescribed by: ROMSERY AVALOS on 11/09/15 0904 Lipase/Protease/Amylase 1 Each Capsule.dr, 2 EACH PO AC and 1 with snacks Prescribed by: ROSMERY AVALOS on 11/09/15 0904 Metoprolol Tartrate 25 Mg Tablet, 25 MG PO BID Prescribed by: ROSMERY AVALOS on 05/29/15 1738 Metronidazole 500 Mg Tablet, 500 MG PO TID Prescribed by: ROSMERY AVALOS on 11/09/15 0904 Multivitamin 1 Each Tablet, 1 TAB PO DAILY, (Reported) Oxycodone Hcl 5 Mg Tablet, 5 MG PO Q4H PRN for PAIN, (Reported) Pantoprazole Sodium 40 Mg Tablet.dr, 40 MG PO DAILY, (Reported) Polyethylene Glycol 3350 17 Gm Powd.pack, 17 GM PO BID PRN for CONSTIPATION, (Reported) Potassium Chloride 20 Meq Tab.er.prt, 20 MEQ PO BID WITH MEALS Prescribed by: ROSMERY AVALOS on 05/29/15 1738 Sennosides/Docusate Sodium 1 Each Tablet, 1 TAB PO BID PRN for CONSTIPATION, (Reported) Tamsulosin HCl 0.4 Mg Cap.er.24h, 0.4 MG PO DAILY, (Reported) Patient Home Medication List Home Medication List Reviewed: Yes Past Ivlhpeg-Lyjuor-Zlqpie Hx Patient Social History Marrital Status: Employed/Student: retired Tobacco Use?: No Smoking Status: Never a Smoker Substance use?: No Alcohol Use?: No Pt feels they are or have been: No Immunizations Up To Date Date of Influenza Vaccine: Jul 05, 2015 First/Initial COVID19 Vaccinat: 10/10/2020 Second COVID19 Vaccination Carlos: 11/10/2020 Date of Pneumonia Vaccine: Jun 05, 2015 Seasonal Allergies Seasonal Allergies: No Current Status Advance Directives: No Communicates: Verbally Primary Language: Chadian Preferred Spoken Language: Chadian Is interpretation needed?: No Sensory deficits: Vision impairment Implanted or Applied Medical D: None Past Medical History Hypertension Cataract Pancreatic Blood Disorders: No Adverse Reaction/Blood Tranf: No Family Medical History Cardiovascular disease 19 FATHER Dementia 19 MOTHER Diabetes mellitus 19 FATHER FH: leukemia G8 SISTER FH: multiple myeloma G8 BROTHER Review of Systems Constitutional: weakness, weight loss EENTM: No see HPI, No no symptoms reported, No ear discharge, No hearing loss, No ear pain, No blurred vision, No double vision, No eye pain, No tearing, No vi shaheen loss, No dental problems, No hoarseness, No mouth pain, No mouth swelling, No epistaxis, No nose congestion, No nose pain, No throat pain, No throat swelling, No other Respiratory: No no symptoms reported, No see HPI, No cough, No dyspnea on exertion, No hemoptysis, No orthopnea, No phlegm, No short of breath, No stridor, No wheezing, No other Cardiovascular: No no symptoms reported, No see HPI, No chest pain, No edema, No Hx of Intervention, No palpitations, No syncope, No vascular heart diseas, No other Gastrointestinal: loss of appetite Genitourinary: No no symptoms reported, No see HPI, No decreased output, No discharge, No dysuria, No frequency, No hematuria, No hesitancy, No incontinence, No nocturia, No pain, No other Musculoskeletal: No no symptoms reported, No see HPI, No back pain, No gout, No joint pain, No joint swelling, No muscle pain, No muscle stiffness, No muscle cramps, No muscle twitching, No muscle weakness, No neck pain, No other Skin: No no symptoms reported, No see HPI, No change in color, No change in hair/nails, No dryness, No hx of skin cancer, No lesions, No lumps, No pruritus, No rash, No other Psychiatric/Neurological: Weakness Physical Exam Vital Signs Vital Signs - First Documented 04/22/21 14:07 Temp 36.8 Pulse 67 Resp 17 B/P (MAP) 195/96 (129) O2 Delivery Room Air Capillary Refill : Less Than 3 Seconds Height, Weight, BMI Height: 5'9.00" Weight: 185lbs. 0.0oz. 83.263674av; 27.00 BMI Method:Stated General Appearance: No Apparent Distress HEENT: Normal ENT Inspection Neck: Supple Respiratory: Lungs Clear Cardiovascular: Regular Rate, Rhythm Gastrointestinal: Normal Bowel Sounds, Non Tender, Soft Rectal: Deferred Back: No CVA Tenderness Extremity: Non Tender, No Calf Tenderness, No Pedal Edema Neurologic/Psychiatric: Alert, Oriented x3 Skin: Warm/Dry Comments Laboratory Tests 04/22/21 12:12: Beta-Hydroxybutyrate (Chem panel) 0.19 04/22/21 14:45: Urine Color YELLOW, Urine Clarity CLEAR, Urine pH 6.0, Urine Specific [place] <=1.005, Urine Protein NEGATIVE, Urine Glucose (UA) 3+H, Urine Ketones NEGATIVE, Urine Nitrite NEGATIVE, Urine Bilirubin NEGATIVE, Urine Urobilinogen 0.2, Urine Leukocyte Esterase NEGATIVE, Urine RBC (Auto) NEGATIVE, Urine RBC NONE, Urine WBC NONE, Urine Squamous Epithelial Cells NONE, Urine Crystals NONE, Urine Bacteria NEGATIVE, Urine Casts NONE, Urine Mucus NEGATIVE, Urine Culture Indica shaq NO 04/22/21 15:53: Glucometer 475*H Assessment/Plan Assessment and Plan 1. New Onset/Uncontrolled Diabetes Mellitus--IVFs, insulin drip, monitor electolytes, check HbA1C 2. Hypertension--resume metoprolol 3. History of Pancreatic Cancer with Whipple--follows with Oncology Admission Diagnosis Admission Status: Observation ROSMERY AVALOS DO Apr 22, 2021 19:29
[2021-04-22] MEDS ORDERED: DEXTROSE 50% 50 ML (IMS) SYR IV PRN ×2 (20:30)
[2021-04-22] MEDS ORDERED: NS W/KCL 40 MEQ/L 1,000 ML IV SCH (20:45)
[2021-04-22] MEDS ORDERED: ONDANSETRON 4 MG/2 ML (SDV) Z0FRAN IVP PRN (21:00)
[2021-04-22] MEDS ORDERED: MELATONIN 3 MG TABLET PO SCH (21:00)
--- NOTE | 2021-04-22 21:33 | Tele-ICU Progress Note ---
Progress Note (Tele-ICU Physician , consultation) Available chart/ vitals / labs / Images reviewed H&P is from ER notes and primary service. Patient's information available about PMH, Shx, Fhx allergy reviewed in EMR. ROS as per chart and RN report Patient admitted 04/22 after outpatient labs revealed pt with elevated glucose - only outpt symptoms has been weight loss reported. When pt admitted to ICU glucose already 157 .At Cancer center- glucose around 700, then without treatment 475 in ED , had about 3 hours of insulin infusion and now 157 Full H&P reviewed- being w/u'd for weight loss with hx pancreatic cancer post Whipple 2012 COVID vaccine- 2 dose in Nov 11 UA neg No other labs available in record CT: ABD/Pelvis was done IMPRESSION: Post-Whipple procedure. Previously noted small low-density lesions in the liver are not appreciated on today's study. No abdominal or pelvic lymphadenopathy or mass is detected. Per cameras Pt is alert and comfortable, HR 67 NSR BP 158/93 sats 96% on RA I have ordered BMP, Mg level now- Hgb A1C is pending. Primary service has ordered PO carbohydrate controlled diet- Will d/c insulin drip and use sliding scale protocol with Novolog inisulin. with meals, monitor response. Hypoglycemia protocol also ordered. D/W bedside nursing. GIB Prophylaxis- Protonix, DVT Prophylaxis: SCDs , Focused Exam Height, Weight, BMI Height: 5'9.00" Weight: 185lbs. 0.0oz. 83.607306rr; 27.04 BMI Method:Stated FRANCHESKA AIKEN DO Apr 22, 2021 21:33
[2021-04-22] MEDS ORDERED: METO-333 PO (22:06)
[2021-04-22 22:16] LABS: POTASSIUM 3.5 MMOL/L (3.6-5.0)
[2021-04-22 22:17] LABS: CALCIUM 9.1 MG/DL (8.5-10.1)
[2021-04-22 22:21] LABS: CREATININE SERUM 1.09 MG/DL (0.60-1.30)
[2021-04-22 22:24] LABS: MAGNESIUM 1.7 MG/DL (1.6-2.4)
[2021-04-22] MEDS ORDERED: inSUlin ASPART (NovoLOG) 1 UNIT/0.01 ML (CHARGE PER UNIT) ONE (22:39)
[2021-04-22] MEDS: inSUlin ASPART (NovoLOG) 1 UNIT/0.01 ML (CHARGE PER UNIT) SC SCH (22:41)
[2021-04-22] MEDS ORDERED: KCL 20 MEQ TAB (K-DUR) PO ONE (22:45)
[2021-04-23] MEDS: MAGNESIUM 1 GM/100 ML IVPB 100 ML IV SCH ×2 (01:12→02:14)
[2021-04-23 04:04] LABS: BASOPHILS % (AUTO) 1 % (0-10); EOSINOPHILS # (AUTO) 0.2 10^3/uL (0.0-0.3); EOSINOPHILS % (AUTO) 3 % (0-10); HEMATOCRIT 36 % (40-54); HEMOGLOBIN 11.9 g/dL (13.3-17.7); LYMPHOCYTES # (AUTO) 1.4 10^3/uL (1.0-4.0); LYMPHOCYTES % (AUTO) 23 % (12-44); MEAN CORPUSCULAR HEMOGLOBIN 29 pg (25-34); MEAN CORPUSCULAR HGB CONC 33 g/dL (32-36); MEAN CORPUSCULAR VOLUME 87 fL (80-99); MEAN PLATELET VOLUME 10.7 fL (9.0-12.2); MONOCYTES # (AUTO) 0.7 10^3/uL (0.0-1.0); MONOCYTES % (AUTO) 12 % (0-12); NEUTROPHILS # (AUTO) 3.9 10^3/uL (1.8-7.8); NEUTROPHILS % (AUTO) 62 % (42-75); PLATELET COUNT 258 10^3/uL (130-400); WHITE BLOOD COUNT 6.2 10^3/uL (4.3-11.0)
[2021-04-23 04:30] LABS: POTASSIUM 4.1 MMOL/L (3.6-5.0)
[2021-04-23 04:35] LABS: CREATININE SERUM 1.06 MG/DL (0.60-1.30); PHOSPHORUS 2.9 MG/DL (2.3-4.7)
[2021-04-23 04:38] LABS: MAGNESIUM 2.5 MG/DL (1.6-2.4)
[2021-04-23] MEDS: inSUlin ASPART (NovoLOG) 1 UNIT/0.01 ML (CHARGE PER UNIT) SC SCH (05:33)
[2021-04-23] MEDS ORDERED: KCL 20 MEQ TAB (K-DUR) PO SCH (06:00)
[2021-04-23] MEDS ORDERED: MAGNESIUM 1 GM/100 ML IVPB 100 ML IV SCH (06:00)
[2021-04-23] MEDS ORDERED: POTASSIUM CL 10MEQ/50ML IVPB 50 ML IV SCH (06:00)
[2021-04-23] MEDS ORDERED: INSU100I29 SQ (08:40)
[2021-04-23] MEDS ORDERED: INSU200I SQ (08:40)
[2021-04-23] MEDS ORDERED: PANTOPRAZOLE 40 MG (PROTONIX) TAB PO SCH (09:00)
[2021-04-23] MEDS ORDERED: inSUlin ASPART (NovoLOG) 1 UNIT/0.01 ML (CHARGE PER UNIT) SC SCH (12:00)
[2021-04-23 13:30] VITALS: BP 166/79
[2021-04-23] MEDS ORDERED: TAMSULOSIN 0.4 MG (FLOMAX) CAP PO SCH (18:00)
== END 2021-04-23 13:30 | disposition home or self-care (01) ==
LOC: EDUNIT# 13:52 → ER 13:53 → ICU 16:30 → UNDOADMOB 16:30 → ICU 20:23 → UNDODISOB 04-23 13:30
PROVIDERS: ADMIT Family Medicine; ATTEND Family Medicine
DX: E11.65 Type 2 diabetes mellitus with hyperglycemia (principal); I10 Essential (primary) hypertension; Z85.07 Personal history of malignant neoplasm of pancreas; Z79.890 Hormone replacement therapy; Z79.899 Other long term (current) drug therapy; Z79.891 Long term (current) use of opiate analgesic; Z80.6 Family history of leukemia; Z83.3 Family history of diabetes mellitus; Z80.7 Family history of other malignant neoplasms of lymphoid, hematopoietic and related tissues
CPT/HCPCS: 36415; 74176; 80048; 81000; 82010; 82947; 83036; 83735; 84100; 85025; 87081; G0378

== ENCOUNTER → 2021-04-29 | Outpatient (CLI) | payer MEDICARE ==
[~2021-04-29] MED LIST changes: +BARIUM SUSPENSION 2.1% (VANILLA SILQ) 450 ML PO ONE; +CATHETER FLUSH 10 ML SYR IV PRN; +HOLD METFORMIN - RECEIVED CONTRAST 20 ML VIAL IV SCH; +INSU100I29 SQ; +INSU200I SQ; +IOHEXOL 350 MG/ML 100 ML (OMNIPAQUE 350) VIAL IV ONE; +NS 100 ML (IVPB) BAG IV ONE
--- NOTE | 2021-04-29 09:22 | Diagnostic Imaging Report ---
PROCEDURE: CT chest with contrast, CT abdomen and pelvis with and without contrast. TECHNIQUE: Pre and post intravenous contrast axial imaging of the abdomen and pelvis and post contrast axial imaging of the chest were performed. Auto Exposure Controls were utilized during the CT exam to meet ALARA standards for radiation dose reduction. INDICATION: Pancreatic carcinoma, status post Whipple surgery. Correlation is made with prior CT from 02/07/2019 and 04/22/2021. CT CHEST: No axillary lymphadenopathy is detected. No mediastinal or hilar lymphadenopathy is detected. No pericardial or pleural fluid identified. No pulmonary nodules or masses are seen. There are no infiltrates. IMPRESSION: Continued unremarkable CT of the chest. No lymphadenopathy or evidence of pulmonary metastatic disease is detected. CT ABDOMEN AND PELVIS: Low density lesions in the liver best seen on the postcontrast CT from 02/07/2019 appear to be stable. No new liver mass is detected. Gallbladder surgically absent. There are postoperative changes from Whipple procedure. There is atrophy of the pancreatic body and tail. No residual or recurrent mass is identified. The spleen is unremarkable. No adrenal mass is detected. Kidneys contain small cortical low-attenuation lesions too small to characterize but most likely cysts. Aorta is nonaneurysmal. There is no central retroperitoneal or mesenteric lymphadenopathy. The bowel loops are normal caliber. No free fluid or fluid collection is identified. The bladder is decompressed. Prostate is unremarkable. No pelvic lymphadenopathy is detected. Bony structures are unremarkable. IMPRESSION: Stable CT of the abdomen and pelvis with and without contrast when compared with prior exams from 02/07/2019 and 04/22/2021. Liver lesions are stable. No new abnormality is detected. There is no evidence of abdominal or pelvic lymphadenopathy. Dictated by: Dictated on workstation # [id number]
== END ==
LOC: RAD 08:15
PROVIDERS: ATTEND Internal Medicine Hematology & Oncology
DX: C25.9 Malignant neoplasm of pancreas, unspecified (principal); Z90.49 Acquired absence of other specified parts of digestive tract
CPT/HCPCS: 71260; 74178

== ENCOUNTER 2021-05-01 14:30 | Outpatient (RCR) | payer MEDICARE, OTHER ==
[2021-04-22 12:18] LABS: BASOPHILS % (AUTO) 1 % (0-10); EOSINOPHILS # (AUTO) 0.1 10^3/uL (0.0-0.3); EOSINOPHILS % (AUTO) 1 % (0-10); HEMATOCRIT 36 % (40-54); HEMOGLOBIN 12.2 g/dL (13.3-17.7); LYMPHOCYTES # (AUTO) 0.9 10^3/uL (1.0-4.0); LYMPHOCYTES % (AUTO) 14 % (12-44); MEAN CORPUSCULAR HEMOGLOBIN 30 pg (25-34); MEAN CORPUSCULAR HGB CONC 34 g/dL (32-36); MEAN CORPUSCULAR VOLUME 87 fL (80-99); MEAN PLATELET VOLUME 10.7 fL (9.0-12.2); MONOCYTES # (AUTO) 0.7 10^3/uL (0.0-1.0); MONOCYTES % (AUTO) 12 % (0-12); NEUTROPHILS # (AUTO) 4.3 10^3/uL (1.8-7.8); NEUTROPHILS % (AUTO) 71 % (42-75); PLATELET COUNT 255 10^3/uL (130-400)
[2021-04-22 12:47] LABS: ALBUMIN 3.6 GM/DL (3.2-4.5); BILIRUBIN,TOTAL 0.4 MG/DL (0.1-1.0); CALCIUM 8.7 MG/DL (8.5-10.1); CREATININE SERUM 1.52 MG/DL (0.60-1.30); POTASSIUM 4.5 MMOL/L (3.6-5.0); TOTAL PROTEIN 6.8 GM/DL (6.4-8.2)
[~2021-05-01 14:30] MED LIST changes: -BARIUM SUSPENSION 2.1% (VANILLA SILQ) 450 ML PO ONE; -CATHETER FLUSH 10 ML SYR IV PRN; -HOLD METFORMIN - RECEIVED CONTRAST 20 ML VIAL IV SCH; -IOHEXOL 350 MG/ML 100 ML (OMNIPAQUE 350) VIAL IV ONE; -NS 100 ML (IVPB) BAG IV ONE
== END 2021-05-29 | disposition home or self-care (01) ==
LOC: ONC 14:30
PROVIDERS: ATTEND Internal Medicine Hematology & Oncology
DX: C25.0 Malignant neoplasm of head of pancreas (principal); I10 Essential (primary) hypertension; K21.9 Gastro-esophageal reflux disease without esophagitis; M19.90 Unspecified osteoarthritis, unspecified site; D64.9 Anemia, unspecified; I48.0 Paroxysmal atrial fibrillation; Z86.79 Personal history of other diseases of the circulatory system; Z98.890 Other specified postprocedural states; Z79.899 Other long term (current) drug therapy
CPT/HCPCS: 80053; 85025; 99213

== ENCOUNTER → 2021-06-07 | Outpatient (CLI) | payer MEDICARE ==
--- NOTE | 2021-06-07 09:44 | Diagnostic Imaging Report ---
CLINICAL INDICATIONS: Patient with left lower quadrant pain and abdominal bulge. Patient has history of pancreatic cancer and Whipple procedure. EXAM: Complete abdominal ultrasound. COMPARISONS: CT scan of the chest, abdomen, and pelvis with contrast dated 04/29/2021. FINDINGS: Patient body habitus and overlying bowel gas obscures some portions of this exam. The pancreas is obscured by bowel gas and unable to be evaluated. Patient was noted to have a severely atrophic pancreas on the comparison CT scan and resection changes of the head. The gallbladder surgically absent. The liver measures 15.4 cm. There is diffuse hyperechogenicity seen throughout the liver likely related to diffuse fatty infiltration which was also noted on the prior study. There is no gross liver abnormalities seen. There is no gross intrahepatic ductal dilation as visualized. The abdominal aorta shows no aneurysmal dilation. The IVC is obscured and unable to be evaluated. The common bile duct is obscured and unable to be evaluated. The spleen is normal echogenicity and measures 10.5 cm and shows no significant abnormality. There is a 1.6 cm cyst involving the inferior aspect of the right kidney. There is a 1.9 cm cyst involving the midportion of the left kidney. Otherwise both kidneys are unremarkable with no hydronephrosis. The right and left kidneys measure 9.7 cm and 10.3 cm in craniocaudal dimension, respectively. There is no abdominal ascites. IMPRESSION: 1: Significantly limited exam due to patient body habitus and overlying bowel gas. There is no acute abnormality seen on this exam. The gallbladder surgically resected. 2: The pancreas, IVC, and common bile duct are obscured and cannot be evaluated on this exam. 3: There is diffuse hyperechogenicity seen throughout the liver likely related to diffuse fatty infiltration of the liver. 4: Bilateral renal cysts. Dictated by: Dictated on workstation # [id number]
== END ==
LOC: RAD 07:53
PROVIDERS: ATTEND Family Medicine
DX: N28.1 Cyst of kidney, acquired (principal); Z85.07 Personal history of malignant neoplasm of pancreas; Z90.49 Acquired absence of other specified parts of digestive tract
CPT/HCPCS: 76700

== ENCOUNTER → 2022-03-13 | Outpatient (CLI) | payer MEDICARE ==
[~2022-03-13] MED LIST changes: -LEVO500T80 PO; +LEVO500T81 PO; +POTA-169 PO; -POTA20TA8 PO
== END ==
LOC: EDSTATUS 05-30 08:10 → ONC 10:28
PROVIDERS: ATTEND Internal Medicine Hematology & Oncology
DX: C25.9 Malignant neoplasm of pancreas, unspecified (principal); M19.90 Unspecified osteoarthritis, unspecified site; I48.0 Paroxysmal atrial fibrillation; I10 Essential (primary) hypertension; E11.9 Type 2 diabetes mellitus without complications; D64.9 Anemia, unspecified; N28.1 Cyst of kidney, acquired; Z90.410 Acquired total absence of pancreas; Z90.49 Acquired absence of other specified parts of digestive tract; Z98.0 Intestinal bypass and anastomosis status; Z93.4 Other artificial openings of gastrointestinal tract status
CPT/HCPCS: 99213

== ENCOUNTER 2022-03-22 18:42 | Emergency (ER) | payer MEDICARE ==
[~2022-03-22] VITALS: Ht 172.7 cm; Wt 83.9 kg
--- NOTE | 2022-03-22 19:34 | ED Cough/URI ---
General Chief Complaint: COVID19 Suspect/Confirmed Stated Complaint: COVID + HOME TEST TODAY,NASAL DRAINAGE Nursing Triage Note: pt ambulatory to room. pt states he tested positive for covid at home about an hour prior to coming to the er. pt states he has a runny nose, sore throat, and "no energy." Source: patient Exam Limitations: no limitations History of Present Illness Date Seen by Provider: Mar 22, 2022 Time Seen by Provider: 19:29 Initial Comments Patient is a 86-year-old male with a history of diabetes currently on insulin, pancreatic cancer who presents to ED with nasal congestion mild fatigue and scratchy throat. This started yesterday evening. Started having decreased energy level. Had a scratchy throat yesterday evening and woke up today with runny nose without cough. Took a in-home positive test for COVID tested positive. Up-to-date his COVID-vaccine. Denies of any current chest pain, cough, shortness of breath, abdominal pain, fever, urinary symptoms, vomiting, diarrhea, headache, dizziness or visual changes. Patient appears in no acute distress. States his blood sugar has been stable at home. Allergies and Home Medications Allergies Coded Allergies: Tetanus Vaccines and Toxoid (Unverified Allergy, Unknown, 03/25/15) Patient Home Medication List Home Medication List Reviewed: Yes Furosemide (Furosemide) 40 Mg Tablet, 20 MG PO DAILY Prescribed by: ROSMERY HYATT on 05/29/15 1738 Insulin Detemir (Levemir Flextouch) 100 Unit/1 Ml Insuln.pen, 20 UNIT SQ HS Prescribed by: ROSMERY HYATT on 04/23/21 0840 Insulin Lispro (Humalog Kwikpen) 200 Unit/1 Ml Insuln.pen, 0 SQ AC Prescribed by: ROSMERY HYATT on 04/23/21 0840 Lipase/Protease/Amylase (Fiordaliza Snell 24,000 Units Capsule) 1 Each Capsule.dr, 2 EACH PO AC Prescribed by: ROSMERY HYATT on 11/09/15 0904 Metoprolol Tartrate (Metoprolol Tartrate) 25 Mg Tablet, 12.5 MG PO BID Prescribed by: JAYESH PÉREZ on 04/22/21 2206 Multivitamin (One Daily) 1 Each Tablet, 1 TAB PO DAILY, (Reported) Entered as Reported by: RAZIA STEELE on 05/25/15 152 Nirmatrelvir/Ritonavir (Paxlovid 150-100 mg Pack (Eua)) 150 Mg-100 Mg Tablet, 1 EACH PO BID Prescribed by: JIMY HERRERA on 03/22/222049 Pantoprazole Sodium (Pantoprazole Sodium) 40 Mg Tablet.dr, 40 MG PO DAILY, (Reported) Entered as Reported by: RAZIA STEELE on 05/25/15 152 Potassium Chloride (Klor-Con M20) 20 Meq Tab.er.prt, 20 MEQ PO BID WITH MEALS Prescribed by: ROSMERY HYATT on 05/29/15 173 Tamsulosin HCl (Tamsulosin HCl) 0.4 Mg Cap.er.24h, 0.4 MG PO DAILY, (Reported) Entered as Reported by: RAZIA STEELE on 05/25/151522 Review of Systems Review of Systems Constitutional: chills; No diaphoresis; malaise, weakness EENTM: No ear pain, No blurred vision, No double vision Respiratory: No cough, No short of breath Cardiovascular: No chest pain, No edema, No syncope Gastrointestinal: No abdominal pain, No diarrhea Genitourinary: No decreased output, No discharge Musculoskeletal: No back pain, No joint pain Skin: No change in color, No change in hair/nails All Other Systems Reviewed Negative Unless Noted: Yes Past Fuzmojw-Eoydtw-Lyvozg Hx Immunizations Up To Date Tetanus Booster (TDap): More than 5yrs Seasonal Allergies Seasonal Allergies: No Past Medical History Surgeries: Yes (CARPAL TUNNEL BILAT; CATARACTS REPAIR) Respiratory: No Cardiac: Yes Hypertension Neurological: No Reproductive Disorders: No Gastrointestinal: Yes (LESION ON PANCREAS) Musculoskeletal: No Endocrine: No Cataract Cancer: Yes Pancreatic Psychosocial: No Integumentary: No Blood Disorders: No Adverse Reaction/Blood Tranf: No Family Medical History Cardiovascular disease 19 FATHER Dementia 19 MOTHER Diabetes mellitus 19 FATHER FH: leukemia G8 SISTER FH: multiple myeloma G8 BROTHER Physical Exam Vital Signs - First Documented 03/22/22 19:08 Temp 36.6 Pulse 64 Resp 20 B/P (MAP) 197/131 (153) Pulse Ox 98 Capillary Refill : Height: 5'9.00" Weight: 185lbs. 0.0oz. 83.364226mw; 28.00 BMI Method:Stated General Appearance: WD/WN, no apparent distress Eyes: Bilateral Eye Normal Inspection, Bilateral Eye PERRL, Bilateral Eye EOMI HEENT: PERRL/EOMI, normal ENT inspection, TMs normal, pharynx normal Neck: non-tender, full range of motion, supple, normal inspection Respiratory: chest non-tender, lungs clear, normal breath sounds, no respiratory distress, no accessory muscle use Cardiovascular: regular rate, rhythm, no edema, no gallop, no JVD Gastrointestinal: normal bowel sounds, non tender, soft, no organomegaly, no pulsatile mass Extremities: normal range of motion, non-tender, normal inspection, no pedal edema 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, no motor/sensory deficits, alert, normal mood/affect, oriented x 3 Skin: normal color, warm/dry Progress/Results/Core Measures Suspected Sepsis SIRS Temperature: Pulse: 64 Respiratory Rate: 20 Laboratory Tests 03/22/22 20:20: White Blood Count 7.2 Blood Pressure 197 /131 Mean: 153 Laboratory Tests 03/22/22 20:20: Creatinine 1.15, Platelet Count 223, Total Bilirubin 0.4 Results/Orders Lab Results Laboratory Tests Test 03/22/22 19:19 03/22/22 20:20 Range/Units Influenza Type A (RT-PCR) Not Detected Not Detecte Influenza Type B (RT-PCR) Not Detected Not Detecte SARS-CoV-2 RNA (RT-PCR) Detected H Not Detecte White Blood Count 7.2 4.3-11.0 10^3/uL Red Blood Count 4.33 4.30-5.52 10^6/uL Hemoglobin 12.7 L 13.3-17.7 g/dL Hematocrit 38 L 40-54 % Mean Corpuscular Volume 89 80-99 fL Mean Corpuscular Hemoglobin 29 25-34 pg Mean Corpuscular Hemoglobin Concent 33 32-36 g/dL Red Cell Distribution Width 13.0 10.0-14.5 % Platelet Count 223 130-400 10^3/uL Mean Platelet Volume 10.1 9.0-12.2 fL Immature Granulocyte % (Auto) 0 % Neutrophils (%) (Auto) 70 42-75 % Lymphocytes (%) (Auto) 10 L 12-44 % Monocytes (%) (Auto) 17 H 0-12 % Eosinophils (%) (Auto) 2 0-10 % Basophils (%) (Auto) 1 0-10 % Neutrophils # (Auto) 5.0 1.8-7.8 10^3/uL Lymphocytes # (Auto) 0.7 L 1.0-4.0 10^3/uL Monocytes # (Auto) 1.2 H 0.0-1.0 10^3/uL Eosinophils # (Auto) 0.1 0.0-0.3 10^3/uL Basophils # (Auto) 0.0 0.0-0.1 10^3/uL Immature Granulocyte # (Auto) 0.0 0.0-0.1 10^3/uL Sodium Level 139 135-145 MMOL/L Potassium Level 4.1 3.6-5.0 MMOL/L Chloride Level 103 98-107 MMOL/L Carbon Dioxide Level 23 21-32 MMOL/L Anion Gap 13 5-14 MMOL/L Blood Urea Nitrogen 18 7-18 MG/DL Creatinine 1.15 0.60-1.30 MG/DL Estimat Glomerular Filtration Rate 63 BUN/Creatinine Ratio 16 Glucose Level 164 H 70-105 MG/DL Calcium Level 9.4 8.5-10.1 MG/DL Corrected Calcium 9.2 8.5-10.1 MG/DL Total Bilirubin 0.4 0.1-1.0 MG/DL Aspartate Amino Transf (AST/SGOT) 36 H 5-34 U/L Alanine Aminotransferase (ALT/SGPT) 26 0-55 U/L Alkaline Phosphatase 110 40-136 U/L Total Protein 7.0 6.4-8.2 GM/DL Albumin 4.2 3.2-4.5 GM/DL My Orders Orders - CHUYITA SPENCER Covid 19 Inhouse Test (03/22/22 19:13) Influenza A And B By Pcr (03/22/22 19:13) Cbc With Automated Diff (03/22/22 20:04) Comprehensive Metabolic Panel (03/22/22 20:04) Vital Signs/I&O 03/22/22 19:08 Temp 36.6 Pulse 64 Resp 20 B/P (MAP) 197/131 (153) Pulse Ox 98 Capillary Refill : Blood Pressure Mean: 153 Departure Communication (PCP) Patient presents ED with flulike symptoms. Symptoms started yesterday. History of pancreatic cancer with Whipple resulted in diabetes. positive COVID here. He has no chest pain, shortness of breath, vomiting or diarrhea. Lab work was otherwise unremarkable here. Patient is a candidate for paxlovid. Possible Interaction with Tamulosin which I recommend stopping the medication until paxlovid is completed. Patient is not currently on a statin. Normal liver and normal kidney function. Does not appear in acute distress. Quarantine at home for the next 5 days. Up-to-date on his COVID-vaccine. Recommend follow-up your PCP in 2 to 3 days for reevaluation. If any worsening symptoms return back to ED for further evaluation. Patient blood pressure fluctuated here. He has not taken his night dose. Does not want to wait for improvement of his blood pressure. Patient initial blood pressure was 197/131 which was on his forearm. Rechecked on his brachial pulse was 159/77. This number fluctuated. Continue monitoring blood pressure at home and to take blood pressure medication Impression Primary Impression: COVID-19 Disposition: 01 HOME, SELF-CARE Condition: Stable Departure-Patient Inst. Decision time for Depature: 20:50 Referrals: ROSMERY HYATT DO (PCP/Family) Primary Care Physician Patient Instructions: COVID-19 (DC) Scripts Nirmatrelvir/Ritonavir (Paxlovid 150-100 mg Pack (Eua)) 150 Mg-100 Mg Tablet 1 EACH PO BID for 5 Days, #10 TAB Prov: CHUYITA SPENCER 03/22/22 CHUYITA SPENCER Mar 22, 2022 19:34
[2022-03-22 20:29] LABS: BASOPHILS % (AUTO) 1 % (0-10); EOSINOPHILS # (AUTO) 0.1 10^3/uL (0.0-0.3); EOSINOPHILS % (AUTO) 2 % (0-10); HEMATOCRIT 38 % (40-54); HEMOGLOBIN 12.7 g/dL (13.3-17.7); LYMPHOCYTES # (AUTO) 0.7 10^3/uL (1.0-4.0); LYMPHOCYTES % (AUTO) 10 % (12-44); MEAN CORPUSCULAR HEMOGLOBIN 29 pg (25-34); MEAN CORPUSCULAR HGB CONC 33 g/dL (32-36); MEAN CORPUSCULAR VOLUME 89 fL (80-99); MEAN PLATELET VOLUME 10.1 fL (9.0-12.2); MONOCYTES # (AUTO) 1.2 10^3/uL (0.0-1.0); MONOCYTES % (AUTO) 17 % (0-12); NEUTROPHILS % (AUTO) 70 % (42-75); PLATELET COUNT 223 10^3/uL (130-400); WHITE BLOOD COUNT 7.2 10^3/uL (4.3-11.0)
[2022-03-22 20:36] LABS: ALBUMIN 4.2 GM/DL (3.2-4.5)
[2022-03-22 20:37] LABS: POTASSIUM 4.1 MMOL/L (3.6-5.0)
[2022-03-22 20:38] LABS: CALCIUM 9.4 MG/DL (8.5-10.1)
[2022-03-22 20:41] LABS: BILIRUBIN,TOTAL 0.4 MG/DL (0.1-1.0)
[2022-03-22 20:43] LABS: CREATININE SERUM 1.15 MG/DL (0.60-1.30)
[2022-03-22] MEDS ORDERED: NIRM1TAB5 PO (20:50)
[2022-03-22 21:00] VITALS: BP 197/111
== END 2022-03-22 21:00 | disposition home or self-care (01) ==
LOC: EDUNIT# 18:42 → ER 18:45
DX: U07.1 COVID-19 (principal); E11.9 Type 2 diabetes mellitus without complications; Z79.4 Long term (current) use of insulin
CPT/HCPCS: 36415; 80053; 85025; 87636; 99283

== ENCOUNTER → 2022-09-08 | Outpatient (CLI) | payer MEDICARE ==
[~2022-09-08] MED LIST changes: +LEVO-55 PO; -LEVO500T81 PO; +NIRM1TAB5 PO
== END ==
LOC: ONC 10:15
PROVIDERS: ATTEND Internal Medicine Hematology & Oncology
DX: C25.9 Malignant neoplasm of pancreas, unspecified (principal); C75.9 Malignant neoplasm of endocrine gland, unspecified; I10 Essential (primary) hypertension; K21.9 Gastro-esophageal reflux disease without esophagitis; M19.90 Unspecified osteoarthritis, unspecified site; E11.9 Type 2 diabetes mellitus without complications; D64.9 Anemia, unspecified
CPT/HCPCS: 99213

== ENCOUNTER → 2022-09-24 | Outpatient (CLI) | payer MEDICARE, OTHER ==
[~2022-09-24] MED LIST changes: +CATHETER FLUSH 10 ML SYR IV PRN; +HOLD METFORMIN - RECEIVED CONTRAST 20 ML VIAL IV SCH; +IOHEXOL 350 MG/ML 100 ML (OMNIPAQUE 350) VIAL IV ONE; +NS 100 ML (IVPB) BAG IV ONE
--- NOTE | 2022-09-24 13:01 | Diagnostic Imaging Report ---
EXAMINATION: CT chest, abdomen and pelvis with intravenous contrast. TECHNIQUE: Multiple contiguous axial images were obtained through the chest, abdomen and pelvis after the uneventful administration of intravenous contrast. All CT scans use one or more of the following dose optimizing techniques: Automated exposure control, MA and/or KvP adjustment based on patient size and exam type or iterative reconstruction. HISTORY: Pancreatic cancer, status post Whipple. COMPARISON: 04/29/2021. FINDINGS: There is no edema or pneumonia. No pleural effusion. No pneumothorax. No suspicious nodules. There is no axillary or supraclavicular lymphadenopathy. There is no mediastinal lymphadenopathy. Heart size is normal. There are moderate coronary artery calcifications. No pericardial effusion. Aorta is normal in caliber. Liver is steatotic. Previously seen segment liver lesion measures 8 mm, previously 8 mm. Segment V liver lesion is also stable measuring 7 mm. These are likely cysts but too small to characterize. There is no biliary ductal dilation. Gallbladder is absent. There has been a pancreaticoduodenectomy. No evidence for local recurrence. There is unchanged atrophy of the pancreatic body and tail. Spleen is normal. Adrenal glands are normal. There is a simple cyst in the left kidney. No suspicious renal lesions. There is no hydronephrosis. Urinary bladder is normal. Bowel is normal in caliber without obstruction or inflammation. No free fluid or air. No abdominal or pelvic lymphadenopathy. Aorta is normal in caliber without aneurysm. There are no suspicious osseous lesions. IMPRESSION: 1. No metastatic disease in the chest, abdomen, or pelvis. Dictated by: Dictated on workstation # [id number]
== END ==
LOC: RAD 11:32
PROVIDERS: ATTEND Internal Medicine Hematology & Oncology
DX: C25.0 Malignant neoplasm of head of pancreas (principal)
CPT/HCPCS: 71260; 74177

== ENCOUNTER 2022-10-02 09:36 | Outpatient (RCR) | payer MEDICARE, OTHER ==
[~2022-10-02 09:36] MED LIST changes: -CATHETER FLUSH 10 ML SYR IV PRN; -HOLD METFORMIN - RECEIVED CONTRAST 20 ML VIAL IV SCH; -IOHEXOL 350 MG/ML 100 ML (OMNIPAQUE 350) VIAL IV ONE; -NS 100 ML (IVPB) BAG IV ONE; +POTA10CA44 PO
== END 2022-10-21 | disposition home or self-care (01) ==
LOC: ONC 09:36
PROVIDERS: ATTEND Internal Medicine Hematology & Oncology
DX: C25.9 Malignant neoplasm of pancreas, unspecified (principal); I10 Essential (primary) hypertension
CPT/HCPCS: 99213

== ENCOUNTER 2023-01-01 09:03 | Outpatient (RCR) | payer MEDICARE, OTHER ==
[~2023-01-01 09:03] MED LIST changes: -INSU100I29 SQ; +INSU100I30 SQ
== END 2023-01-18 | disposition home or self-care (01) ==
LOC: ONC 09:03
PROVIDERS: ATTEND Internal Medicine Hematology & Oncology
DX: C25.9 Malignant neoplasm of pancreas, unspecified (principal); I10 Essential (primary) hypertension

== ENCOUNTER 2023-02-02 09:00 | Outpatient (RCR) | payer MEDICARE, OTHER ==
[2023-02-02 09:28] LABS: BASOPHILS # (AUTO) 0.1 10^3/uL (0.0-0.1); BASOPHILS % (AUTO) 1 % (0-10); EOSINOPHILS # (AUTO) 0.3 10^3/uL (0.0-0.3); EOSINOPHILS % (AUTO) 5 % (0-10); HEMATOCRIT 34 % (40-54); HEMOGLOBIN 11.5 g/dL (13.3-17.7); LYMPHOCYTES % (AUTO) 19 % (12-44); MEAN CORPUSCULAR HEMOGLOBIN 30 pg (25-34); MEAN CORPUSCULAR HGB CONC 33 g/dL (32-36); MEAN CORPUSCULAR VOLUME 90 fL (80-99); MEAN PLATELET VOLUME 10.6 fL (9.0-12.2); MONOCYTES # (AUTO) 0.8 10^3/uL (0.0-1.0); MONOCYTES % (AUTO) 15 % (0-12); NEUTROPHILS # (AUTO) 3.2 10^3/uL (1.8-7.8); NEUTROPHILS % (AUTO) 60 % (42-75); PLATELET COUNT 222 10^3/uL (130-400); WHITE BLOOD COUNT 5.3 10^3/uL (4.3-11.0)
[2023-02-02 09:55] LABS: ALBUMIN 3.6 GM/DL (3.2-4.5); BILIRUBIN,TOTAL 0.4 MG/DL (0.1-1.0); CALCIUM 8.8 MG/DL (8.5-10.1); CREATININE SERUM 1.19 MG/DL (0.60-1.30); POTASSIUM 4.3 MMOL/L (3.6-5.0); TOTAL PROTEIN 6.1 GM/DL (6.4-8.2)
== END 2023-02-18 | disposition home or self-care (01) ==
LOC: ONC 09:00
PROVIDERS: ATTEND Internal Medicine Hematology & Oncology
DX: C25.9 Malignant neoplasm of pancreas, unspecified (principal); C7A.8 Other malignant neuroendocrine tumors; I10 Essential (primary) hypertension
CPT/HCPCS: 36415; 80053; 82728; 83540; 83550; 84153; 85025

== ENCOUNTER 2023-04-08 10:14 | Outpatient (RCR) | payer MEDICARE, OTHER ==
[~2023-04-08 10:14] MED LIST changes: -POTA10CA44 PO; +POTA10CA84 PO
== END 2023-04-20 | disposition home or self-care (01) ==
LOC: ONC 10:14
PROVIDERS: ATTEND Internal Medicine Hematology & Oncology
DX: C25.9 Malignant neoplasm of pancreas, unspecified (principal); C7A.8 Other malignant neuroendocrine tumors; I10 Essential (primary) hypertension; M19.90 Unspecified osteoarthritis, unspecified site; K21.9 Gastro-esophageal reflux disease without esophagitis
CPT/HCPCS: 82274

== ENCOUNTER 2023-07-13 08:58 | Outpatient (RCR) | payer MEDICARE, OTHER | END 2023-07-21 | disposition home or self-care (01) | LOC: ONC 08:58 | PROVIDERS: ATTEND Internal Medicine Hematology & Oncology | DX: C25.9 Malignant neoplasm of pancreas, unspecified (principal); C7A.8 Other malignant neuroendocrine tumors; I10 Essential (primary) hypertension; M19.90 Unspecified osteoarthritis, unspecified site; K21.9 Gastro-esophageal reflux disease without esophagitis; E11.9 Type 2 diabetes mellitus without complications | CPT/HCPCS: 99214 ==